=== PATIENT | female | born 1945 | race Caucasian/White ===

== ENCOUNTER 2017-04-13 19:27 | Inpatient (IN) | payer OTHER, MEDICARE ==
[~2017-04-13] VITALS: Ht 165.1 cm; Wt 90.0 kg
[~2017-04-13 19:27] MED LIST: AMLO5TAB22 PO; LOSA100T PO; TENO300 PO
[2017-04-13 19:30] VITALS: BP 183/84; PULSE 76; RESP 14; TEMP 98.1; O2SAT 96
[2017-04-13] MEDS ORDERED: LOSA100T PO (19:46)
[2017-04-13] MEDS ORDERED: AMLO5TAB2 PO (19:46)
[2017-04-13 19:47] VITALS: TEMP 99
--- NOTE | 2017-04-13 19:51 | PD ---
HPI Chief Complaint: Skin Problem Time Seen by Provider: 19:51 Travel History International Travel<30 days: No Contact w/Intl Traveler<30days: No Traveled to known affect area: No History of Present Illness HPI 71-year-old female with history of hypertension presents to the emergency department for evaluation of cat bite to right hand thumb that occurred 5 days ago. This was her own personal cat that is up-to-date on its immunizations with no signs or symptoms of rabies. The patient states that she's had worsening redness, swelling and pain in the right thumb since this occurred. States that she is unable to move her thumb due to the swelling and pain. She is complaining of subjective fever. Denies any discharge or drainage from the site. She has been taking ibuprofen and doing Epsom salts with no improvement of symptoms. States that she does have a history of diabetes however this is diet controlled. Unsure of her last tetanus vaccination. No other complaints. PFSH Past Medical History Asthma: No Anxiety: No Depression: No Cancer: No Cardiovascular Problems: No High Cholesterol: Yes COPD: No Diabetes: Yes (DIET CONTROLLED) Diminished Hearing: No Endocrine: Yes GERD: No Genitourinary: Yes (INCONTINENT) Hiatal Hernia: No Hypertension: Yes Immune Disorder: No Kidney Stones: No Musculoskeletal: Yes (BONE SPUR ON SPINE) Neurologic: Yes (NEUROPATHY) Psychiatric: No Reproductive: No Respiratory: Yes (SLEEP APNEA) Integumentary: Yes (ROSACEA) Renal Failure: No Sleep Apnea: Yes (CPAP AT NIGHT) Thyroid Disease: Yes Ulcer: Yes Menopausal: Yes Past Surgical History AICD: No Appendectomy: Yes Eye Surgery: Yes (RIGHT CATARACT 12/13/13) Genitourinary Surgery: Yes (URETHRAL REPAIR,BLADDER REPAIR) Gynecologic Surgery: Yes (total hysterectomy) Hysterectomy: Yes Joint Replacement: No Pacemaker: No Other Surgery: Yes (BLADDER REPAIR) Social History Alcohol Use: No Tobacco Use: No Substance Use: No Allergies-Medications (Allergen,Severity, Reaction): Coded Allergies: Bactrim (Verified Allergy, Severe, UNKNOWN REACTION, 04/13/17) Codeine (Verified Allergy, Severe, UNKNOWN REACTION, 04/13/17) Cymbalta (Verified Allergy, Severe, UNKNOWN REACTION, 04/13/17) Flexeril (Verified Allergy, Severe, LEG CRAMPS, 04/13/17) Januvia (Verified Allergy, Severe, UNKNOWN REACTION, 04/13/17) Lisinopril (Verified Allergy, Severe, COUGH, 04/13/17) Lovastatin (Verified Allergy, Severe, LEG CRAMPS, 04/13/17) Micardis (Verified Allergy, Severe, SWELLING, 04/13/17) Penicillin (Verified Allergy, Severe, UNKNOWN REACTION, 04/13/17) Potassium (Verified Allergy, Severe, LEG CRAMPS, 04/13/17) Sulfa (Verified Allergy, Severe, SWELLING, 04/13/17) *MDRO Multi-Drug Resistant Organism (Verified Adverse Reaction, Unknown, ) 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 Reported Meds & Prescriptions Reported Meds & Active Scripts Active Reported Losartan (Losartan Potassium) 100 Mg Tab 100 Mg PO DAILY Amlodipine (Amlodipine Besylate) 5 Mg Tab 5 Mg PO DAILY Review of Systems Except as stated in HPI: all other systems reviewed are Neg Physical Exam Narrative GENERAL: Well-nourished and well-developed pleasant female patient in no acute distress who is nontoxic appearing. SKIN: Warm and dry. HEAD: Normocephalic and atraumatic. EYES: No injection, drainage, or hyphema noted. PERRLA. EOMI. ENT: No nasal drainage noted. Oropharynx is clear. NECK: Supple and the trachea is midline. CARDIOVASCULAR: Regular rate and rhythm. RESPIRATORY: Breath sounds are equal bilaterally with no accessory muscle use, wheezing, rhonchi, or crackles. GASTROINTESTINAL: Abdomen is soft, non-tender, and nondistended. EXTREMITY: Puncture wound to the volar right thumb just above the MCP. The right thumb is erythematous, warm and swollen, sausage like digit. No lymphangitis. There is tenderness to palpation along the flexor tendon. Patient is unable to flex at the first DIP or MCP. Full range of motion in all other joints. Distal extremity neurovascularly intact with intact two point discrimination. Capillary refill is within normal limits. NEUROLOGICAL: Awake, alert, and oriented. Normal speech and gait. Cranial nerves are grossly intact. Data Data Last Documented VS Vital Signs Date Time Temp Pulse Resp B/P Pulse Ox O2 Delivery O2 Flow Rate FiO2 04/13/17 19:58 98 Room Air 04/13/17 19:47 99.0 04/13/17 19:30 76 14 183/84 Orders Basic Metabolic Panel (Bmp) (04/13/17 19:48) Complete Blood Count With Diff (04/13/17 19:48) Iv Access Insert/Monitor (04/13/17 19:48) Ecg Monitoring (04/13/17 19:48) Oximetry (04/13/17 19:48) Sodium Chloride 0.9% Flush (Ns Flush) (04/13/17 20:00) Ciprofloxacin 400 Mg Premix (Cipro 400 M (04/13/17 20:00) Metronidazole 500 Mg Inj (Flagyl 500 Mg (04/13/17 20:00) Hand, Complete (Vqq2imo) (04/13/17 19:48) C-Reactive Protein (Crp) (04/13/17 19:58) Westergren Sedimentation Rate (04/13/17 19:58) Tetanus/Diphtheria Tox Adult (Tetanus/Di (04/13/17 20:15) NPO (04/14/17 00:00) ^ Other Nursing Orders (04/13/17 20:41) Labs Laboratory Tests Test 04/13/17 19:57 White Blood Count 10.3 TH/MM3 Red Blood Count 4.14 MIL/MM3 Hemoglobin 13.4 GM/DL Hematocrit 37.6 % Mean Corpuscular Volume 90.8 FL Mean Corpuscular Hemoglobin 32.4 PG Mean Corpuscular Hemoglobin 35.6 % Concent Red Cell Distribution Width 12.0 % Platelet Count 188 TH/MM3 Mean Platelet Volume 8.1 FL Neutrophils (%) (Auto) 63.9 % Lymphocytes (%) (Auto) 25.9 % Monocytes (%) (Auto) 6.8 % Eosinophils (%) (Auto) 2.4 % Basophils (%) (Auto) 1.0 % Neutrophils # (Auto) 6.6 TH/MM3 Lymphocytes # (Auto) 2.7 TH/MM3 Monocytes # (Auto) 0.7 TH/MM3 Eosinophils # (Auto) 0.2 TH/MM3 Basophils # (Auto) 0.1 TH/MM3 CBC Comment DIFF FINAL Differential Comment Sodium Level 137 MEQ/L Potassium Level 3.5 MEQ/L Chloride Level 102 MEQ/L Carbon Dioxide Level 27.6 MEQ/L Anion Gap 7 MEQ/L Blood Urea Nitrogen 16 MG/DL Creatinine 0.76 MG/DL Estimat Glomerular Filtration 75 ML/MIN Rate Random Glucose 116 MG/DL Calcium Level 9.2 MG/DL MDM Medical Decision Making Medical Screen Exam Complete: Yes Emergency Medical Condition: Yes Differential Diagnosis Flexor tenosynovitis versus abscess versus cellulitis versus animal bite Narrative Course 71-year-old female presents to the emergency department for evaluation of Bite to right thumb that occurred 5 days ago. Patient is afebrile, vital signs are stable. She has a sausagelike digit that is concerning for flexor tenosynovitis. IV access is obtained, labs were drawn and sent. Patient is placed on cardiac telemetry pulse oximetry monitoring. Patient is administered Cipro 400 mg IV and Flagyl 500 mg IV. X-ray of the right hand has been ordered and is pending. CBC is unremarkable. BMP is unremarkable. Patient will be admitted to medicine service for IV antibiotics and hand surgery consultation with I&D. Physician Communication Physician Communication I spoke with Dr. Mclain who requests patient be admitted to medicine service and kept NPO after midnight for I&D tomorrow. I spoke with Dr. Turner [facility] who agrees to admit the patient to her service. Diagnosis Primary Impression: Flexor tenosynovitis of thumb Additional Impression: Cat bite Qualified Code: W55.01XA - Cat bite, initial encounter Admitting Information Admitting Physician Requests: Admit Daly Hinojosa April 13, 2017 19:51
[2017-04-13 19:58] VITALS: O2SAT 98
[2017-04-13] MEDS ORDERED: metroNIDAZOLE 500 MG INJ 100 ML IV ONE (20:00)
[2017-04-13] MEDS ORDERED: CIPROFLOXACIN 400 MG PREMIX 200 ML IV ONE (20:00)
[2017-04-13] MEDS ORDERED: SODIUM CHLORIDE 0.9% FLUSH 10 ML FLUSH IV FLUSH PRN ×2 (20:00→21:00)
[2017-04-13 20:11] LABS: AUTOMATED NEUTROPHIL # 6.6 TH/MM3 (1.8-7.7); BASOPHIL # 0.1 TH/MM3 (0-0.2); EOSINOPHIL # 0.2 TH/MM3 (0-0.4); EOSINOPHIL % 2.4 % (0.0-4.0); HEMATOCRIT 37.6 % (35.0-46.0); HEMO FLAGS DIFF FINAL; LYMPH % 25.9 % (9.0-44.0); LYMPHOCYTE # 2.7 TH/MM3 (1.0-4.8); MEAN CELL VOLUME 90.8 FL (80.0-100.0); MEAN CORPUSCULAR HEMOGLOBIN 32.4 PG (27.0-34.0); MEAN CORPUSCULAR HGB CONC 35.6 % (32.0-36.0); MONO % 6.8 % (0.0-8.0); NEUT % 63.9 % (16.0-70.0); PLATELET COUNT 188 TH/MM3 (150-450); RED BLOOD COUNT 4.14 MIL/MM3 (4.00-5.30); WHITE BLOOD COUNT 10.3 TH/MM3 (4.0-11.0)
[2017-04-13] MEDS ORDERED: TETANUS/DIPHTHERIA TOXOID ADULT 0.5 ML VIAL IM ONE (20:15)
[2017-04-13 20:29] LABS: BICARBONATE 27.6 MEQ/L (21.0-32.0); POTASSIUM 3.5 MEQ/L (3.5-5.1)
[2017-04-13] MEDS ORDERED: NALOXONE HCL 0.4 MG/ML AMP IV PRN (21:00)
--- NOTE | 2017-04-13 21:00 | RADRPT ---
EXAM DATE/TIME: 04/13/2017 20:41 [place] COMPARISON: No previous studies available for comparison. INDICATIONS : Right medial hand swelling and pain after a cat bite 2 days ago. MEDICAL HISTORY : Hypertension. Hypercholesterolemia. Thyroid disease. Neuropathy. Ulcer. Bone spur on spine. Diabetes. Fatty liver. SURGICAL HISTORY : Appendectomy. Hysterectomy. Right cataract surgery. Bladder and urethral repair. ENCOUNTER: Initial ACUITY: 2 days PAIN SCORE: 6/10 LOCATION: Right lateral hand. FINDINGS: There is severe osteoarthritis of the second and third distal interphalangeal joints and thumb basal joint. No fracture or dislocation. No radiopaque foreign bodies. CONCLUSION: Osteoarthritis. Landon Caruso MD on April 13, 2017 at 20:57 Board Certified Radiologist. This report was verified electronically.
[2017-04-13 21:46] VITALS: BP 159/71; PULSE 68; RESP 18; TEMP 99; O2SAT 100
[2017-04-13] MEDS: SODIUM CHLORIDE 0.9% FLUSH 10 ML FLUSH IV FLUSH SCH (21:47)
[2017-04-13 22:00] VITALS: BP 167/81; PULSE 69; RESP 18; TEMP 97.5; O2SAT 95
[2017-04-13 23:00] VITALS: PULSE 62
[2017-04-14] VITALS: BP 165/73; PULSE 66; RESP 17; TEMP 97.7; O2SAT 96
[2017-04-14] MEDS ORDERED: ACETAMINOPHEN 500 MG CPLT PO PRN (00:15)
[2017-04-14] MEDS ORDERED: ACETAMINOPHEN/HYDROcodone 325 MG/5 MG TAB PO PRN (00:15)
[2017-04-14] MEDS: D5-1/2 NS + KCL 20 MEQ INJ 1,000 ML IV SCH ×2 (00:35→17:48)
[2017-04-14] MEDS: amLODIPine BESYLATE 5 MG TAB PO SCH ×2 (00:35→21:53)
--- NOTE | 2017-04-14 03:38 | HHI.HP ---
HPI Service [facility] Primary Care Physician Rachel Etienne MD Admission Diagnosis Right Thumb Tenosynovitis, Cat Bite Diagnoses: Chief Complaint: cat bite right thumb Travel History International Travel<30 Days: No Contact w/Intl Traveler <30 Da: No Traveled to Known Affected Are: No History of Present Illness Written by Tamara Langley, acting as scribe for Dr. Turner on 04/14/17 at 03: 54. Ms. Perez is a pleasant 70-year-old female with a history of seizure hx no longer on medication, arthritis in neck, hypertension, DM diet controlled, sleep apnea uses CPAP and hepatitis B s/p treatment. Patient presents to the ER for evaluation of a cat bite to right hand thumb that occurred 5 days ago. Patient reports she was giving her cat a pill last Tuesday and the cat bite her. This was her own personal cat that is up-to-date on its immunizations with no signs or symptoms of rabies. The patient states that she's had worsening redness, swelling and pain in the right thumb since this occurred. States that she is unable to move her thumb due to the swelling and pain. describes to pain as a dull aching sensation. She endures subjective fever. Denies any discharge or drainage from the site. She has been taking ibuprofen and doing Epsom salts with no improvement of symptoms. States that she does have a history of diabetes however this is diet controlled. Reports her last A1C last month was 6.0. Patient denies chest pain, SOB, N/V/D or chills. Review of Systems Genitourinary: COMPLAINS OF: Urinary incontinence Except as stated in HPI: all other systems reviewed are Neg Past Family Social History Past Medical History Seizure hx no longer on medication, arthritis of neck, Hypertension, DM diet controlled, sleep apnea does use CPAP, hepatitis B s/p treatment Past Surgical History Total hysterectomy, bladder/ureter repair, appendectomy Reported Medications Losartan (Losartan Potassium) 100 Mg Tab 100 Mg PO DAILY Amlodipine (Amlodipine Besylate) 5 Mg Tab 5 Mg PO DAILY Allergies: Coded Allergies: Bactrim (Verified Allergy, Severe, UNKNOWN REACTION, 04/13/17) Codeine (Verified Allergy, Severe, UNKNOWN REACTION, 04/13/17) Cymbalta (Verified Allergy, Severe, UNKNOWN REACTION, 04/13/17) Flexeril (Verified Allergy, Severe, LEG CRAMPS, 04/13/17) Januvia (Verified Allergy, Severe, UNKNOWN REACTION, 04/13/17) Lisinopril (Verified Allergy, Severe, COUGH, 04/13/17) Lovastatin (Verified Allergy, Severe, LEG CRAMPS, 04/13/17) Micardis (Verified Allergy, Severe, SWELLING, 04/13/17) Penicillin (Verified Allergy, Severe, UNKNOWN REACTION, 04/13/17) Potassium (Verified Allergy, Severe, LEG CRAMPS, 04/13/17) Sulfa (Verified Allergy, Severe, SWELLING, 04/13/17) *MDRO Multi-Drug Resistant Organism (Verified Adverse Reaction, Unknown, ) 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 Active Ordered Medications Current Medications Medications (Trade) Dose Ordered Sig/Carlotta Route Start Time Stop Time Status Last Admin (NS Flush) 2 ml UNSCH PRN IV FLUSH 04/13/17 20:00 (NS Flush) 2 ml UNSCH PRN IV FLUSH 04/13/17 21:00 (NS Flush) 2 ml BID IV FLUSH 04/13/17 21:00 04/13/17 21:47 Naloxone HCl 0.4 mg 0.4 mg UNSCH PRN IV 04/13/17 21:00 Ciprofloxacin/ Dextrose 200 ml @ 200 mls/hr Q12H IV 04/14/17 08:00 Metronidazole 100 ml @ 100 mls/hr Q6H IV 04/14/17 03:00 (D5-1/2 NS + KCl 20 Meq Inj) 1,000 ml @ 84 mls/hr [id number] IV 04/14/17 02:00 04/14/17 00:35 (Cozaar) 100 mg DAILY PO 04/14/17 09:00 (Tylenol) 500 mg Q4H PRN PO 04/14/17 00:15 04/14/17 00:35 ([place] 5-325 Mg) 1 tab Q4H PRN PO 04/14/17 00:15 (Norvasc) 5 mg HS PO 04/14/17 00:05 04/14/17 00:35 Family History Mother secondary to breast cancer, father secondary to pancreatic cancer. Both children diagnosed with colon cancer ages 50 and 45 Social History Patient quit smoking about 30+ years ago. Denies drinking alcohol or using illicit drugs. Physical Exam Vital Signs Vital Signs Date Time Temp Pulse Resp B/P Pulse Ox O2 Delivery O2 Flow Rate FiO2 04/14/17 00:00 97.7 66 17 165/73 96 04/13/17 23:00 62 04/13/17 22:00 97.5 69 18 167/81 95 04/13/17 21:46 99.0 68 18 159/71 100 Room Air 04/13/17 19:58 98 Room Air 04/13/17 19:47 99.0 04/13/17 19:30 98.1 76 14 183/84 96 Room Air Physical Exam GENERAL: This is a well-nourished, well-developed patient, in no apparent distress. SKIN: R thumb with puncture wound and surrounding erythema and edema HEAD: Atraumatic. Normocephalic. No temporal or scalp tenderness. EYES: Extraocular motions intact. No scleral icterus. No injection or drainage. CARDIOVASCULAR: Regular rate and rhythm without murmurs, gallops, or rubs. RESPIRATORY: Clear to auscultation. Breath sounds equal bilaterally. No wheezes , rales, or rhonchi. GASTROINTESTINAL: Abdomen soft, non-tender, nondistended. No guarding. MUSCULOSKELETAL: left lower extremity edema chronic. No calf tenderness. Negative Homans sign bilaterally. NEUROLOGICAL: Awake and alert. No focal deficits. Motor and sensory grossly within normal limits. Five out of 5 muscle strength in all muscle groups, with the exception of right hand due to edema. Normal speech. Laboratory Laboratory Tests Test 04/13/17 19:57 White Blood Count 10.3 Red Blood Count 4.14 Hemoglobin 13.4 Hematocrit 37.6 Mean Corpuscular Volume 90.8 Mean Corpuscular Hemoglobin 32.4 Mean Corpuscular Hemoglobin 35.6 Concent Red Cell Distribution Width 12.0 Platelet Count 188 Mean Platelet Volume 8.1 Neutrophils (%) (Auto) 63.9 Lymphocytes (%) (Auto) 25.9 Monocytes (%) (Auto) 6.8 Eosinophils (%) (Auto) 2.4 Basophils (%) (Auto) 1.0 Neutrophils # (Auto) 6.6 Lymphocytes # (Auto) 2.7 Monocytes # (Auto) 0.7 Eosinophils # (Auto) 0.2 Basophils # (Auto) 0.1 CBC Comment DIFF FINAL Differential Comment Erythrocyte Sedimentation Rate 59 Sodium Level 137 Potassium Level 3.5 Chloride Level 102 Carbon Dioxide Level 27.6 Anion Gap 7 Blood Urea Nitrogen 16 Creatinine 0.76 Estimat Glomerular Filtration 75 Rate Random Glucose 116 Calcium Level 9.2 C-Reactive Protein 1.70 Result Diagram: 04/13/17195604/13/171956 Imaging Last Impressions Hand X-Ray 04/13/171947 Signed Impressions: Service Date/Time: Thursday, April 13, 2017 20:41 - CONCLUSION: Osteoarthritis. Landon Caruso MD Assessment and Plan Problem List: (1) Cat bite ICD Code: W55.01XA Status: Acute (2) Flexor tenosynovitis of thumb ICD Code: M65.9 Status: Acute (3) Hypertension ICD Code: I10 Status: Acute Assessment and Plan Ms. Perez is a pleasant 70-year-old female with a history of hypertension, DM diet controlled, sleep apnea uses CPAP. Patient presents to the ER for evaluation of a cat bite to right hand thumb that occurred 5 days ago. Patient reports she was giving her cat a pill last Tuesday and the cat bite her. This was her own personal cat that is up-to-date on its immunizations with no signs or symptoms of rabies. The patient states that she's had worsening redness, swelling and pain in the right thumb since this occurred. States that she is unable to move her thumb due to the swelling and pain. Cellulitis right hand secondary to cat bite- acute tenosynovitis right thumb- acute Right hand X ray reviewed and reveals: Osteoarthritis. IV ciprofloxacin and Flagyl Consult to hand surgery- planned surgery later today NPO except meds HTN- chronic Continue home medications losartan QAM and Amlodipine QHS monitor BP trend Sleep apnea- chronic OK to use home CPAP- family member is going to bring her home machine Left lower extremity edema- chronic No calf tenderness. Negative Homans sign bilaterally. negative outpatient US 3 weeks ago Discussed with ER provider, nursing and patient This note was transcribed by [email or web address] [Katie Langley]. I, Dr. Ana María Turner personally performed the history, physical exam, and medical decision making; and confirmed the accuracy of the information in the transcribed note. Authenticated by Dr. Ana María Turner on 04/14/17 at 03:54. 04/14/17 at 03:54. Discussed Condition With patient, ER Physician Certification 2 Midnight Certification Type: Admission for Inpatient Services Order for Inpatient Services The services are ordered in accordance with Medicare regulations or non- Medicare payer requirements, as applicable. In the case of services not specified as inpatient-only, they are appropriately provided as inpatient services in accordance with the 2-midnight benchmark. Estimated LOS (days): 3 days is the estimated time the patient will need to remain in the hospital, assuming treatment plan goals are met and no additional complications. Post-Hospital Plan: Home Problem Qualifiers (1) Cat bite: Qualified Code: W55.01XA - Cat bite, initial encounter Tamara Langley April 14, 2017 03:38 Ana María Turner MD April 14, 2017 07:55
[2017-04-14 04:00] VITALS: BP 161/75; PULSE 67; RESP 18; TEMP 96.6; O2SAT 92
[2017-04-14] MEDS: metroNIDAZOLE 500 MG INJ 100 ML IV SCH ×4 (04:12→21:53)
--- NOTE | 2017-04-14 07:29 | MB ---
cc: DIDIER ASCENCIO III, M.D. DATE OF CONSULTATION 04/13/2017 REASON FOR CONSULTATION The patient is a very friendly 71-year-old [id number] female who has had a puncture wounds to her right thumb from her own cat that happened five days ago while she was giving it a pill. It is her cat and she is up-to-date on immunizations and is healthy. She has had worsening redness, swelling and pain that she treated symptomatically at home and she said it has improved considerably, but there is still significant redness and swelling remaining. PAST MEDICAL HISTORY 1. Hepatitis B Elevated Cholesterol 2. Type 2 diabetes 3. Urinary incontinence per report 4. Hypertension 5. Neuropathy 6. Sleep apnea 7. Rosacea 8. Thyroid disease PAST SURGICAL HISTORY 1. Appendectomy 2. Right cataract surgery in 2013 degrees. 3. Urethral repair and bladder repair 4. Total hysterectomy SOCIAL HISTORY She does not smokes. ALLERGIES BACTRIM, CODEINE, CYMBALTA, FLEXERIL, JANUVIA, LISINOPRIL, LOVASTATIN, MICARDIS, PENICILLIN, POTASSIUM, SULFA. MEDICATIONS 1. Losartan 100 mg daily 2. Amlodipine 5 mg daily REVIEW OF SYSTEMS Patient is not remaining of any headaches, blurry or double vision. She is not complaining of any coughing, wheezing or shortness breath. She is not complaining of any chest pain or palpitations. She is not complaining of any nausea, vomiting, or abdominal pain. She is not complaining of any burning, frequency or urgency with urination. She is not complaining of any spine, neck or back pain. She is not complaining of any anxiety, depression or suicidal ideations. She is not complaining of any night sweats, fevers or chills. She is not complaining of any lesions, rashes or eruptions on her skin except for her right thumb. X-rays of the right thumb reveal no fractures, foreign bodies or dislocations and reveals only the osteoarthritic changes in her hand. LABORATORY STUDIES BUN and creatinine 16 and 0.76. White blood cell count 10.3, hemoglobin 13.4, hematocrit 37.6, platelet count 188,000. PHYSICAL EXAMINATION She is a very pleasant well-developed, well-nourished female in no apparent distress. VITAL SIGNS: Temperature is 99.0, heart rate 68, respiratory rate 18, blood pressure 159/71, on room air 100% pulse ox. EXTREMITIES: Examination of the upper extremity reveals an obviously swollen and erythematous right thumb with an area of induration over the A1 josue proximal to the MCP flexion crease. There are healed puncture wounds over the proximal phalanx volarly. Flexion/extension is intact. Negative Tinel's sign over the median nerve at the wrist. All musculotendinous units appear to be intact and functioning normally with the exception of the thumb which is only a little bit stiff from the edema. Capillary refill is less than two seconds in the thumb and all fingertips. There is no proximal streaking. There is no axillary adenopathy. There is no epitrochlear adenopathy. She has full active range of motion of her wrist, elbow and her shoulders also. Her gait is normal. She is very pleasant. IMPRESSION Cat bite to the right thumb with infection and flexor tenosynovitis and abscess. PLAN The plan is to go to the operating room tomorrow. The patient ate dinner before she came to the hospital this evening so I put her on for the operating room the late morning to follow my cases. She is in agreement with this and requests that we proceed. MD DAYSI Stern III/JULIET /10:57 PM /7:16 AM LUCY
[2017-04-14 07:33] LABS: AUTOMATED NEUTROPHIL # 4.3 TH/MM3 (1.8-7.7); BASOPHIL % 0.6 % (0.0-2.0); EOSINOPHIL # 0.2 TH/MM3 (0-0.4); EOSINOPHIL % 3.2 % (0.0-4.0); HEMATOCRIT 36.1 % (35.0-46.0); HEMO FLAGS DIFF FINAL; LYMPH % 27.1 % (9.0-44.0); LYMPHOCYTE # 1.9 TH/MM3 (1.0-4.8); MEAN CELL VOLUME 91.2 FL (80.0-100.0); MEAN CORPUSCULAR HEMOGLOBIN 31.9 PG (27.0-34.0); NEUT % 61.1 % (16.0-70.0); PLATELET COUNT 150 TH/MM3 (150-450); RED BLOOD COUNT 3.96 MIL/MM3 (4.00-5.30); WHITE BLOOD COUNT 7.1 TH/MM3 (4.0-11.0)
[2017-04-14 08:00] VITALS: BP 159/74; PULSE 68; RESP 16; TEMP 96.8; O2SAT 94
[2017-04-14 08:03] LABS: BICARBONATE 26.7 MEQ/L (21.0-32.0); POTASSIUM 3.3 MEQ/L (3.5-5.1)
[2017-04-14] MEDS: CIPROFLOXACIN 400 MG PREMIX 200 ML IV SCH ×2 (08:23→23:01)
[2017-04-14] MEDS: LOSARTAN 50 MG TAB PO SCH (08:23)
[2017-04-14] MEDS: SODIUM CHLORIDE 0.9% FLUSH 10 ML FLUSH IV FLUSH SCH ×2 (08:23→21:53)
[2017-04-14] MEDS ORDERED: amLODIPine BESYLATE 5 MG TAB PO SCH (09:00)
[2017-04-14] MEDS ORDERED: BUPIVACAINE HCL PF 0.5% 30 ML VIAL ONE (10:57)
[2017-04-14] MEDS ORDERED: LIDOCAINE HCL 1% 50 ML VIAL ONE (10:58)
[2017-04-14] MEDS ORDERED: LIDOCAINE HCL 2% 50 ML VIAL ONE (11:27)
[2017-04-14] MEDS ORDERED: METOCLOPRAMIDE HCL 10 MG/2 ML VIAL ONE (11:41)
[2017-04-14] MEDS ORDERED: fentaNYL CITRATE 250 MCG/5 ML AMP ONE (11:41)
[2017-04-14] MEDS ORDERED: ONDANSETRON HCL 4 MG/2 ML VIAL IV PUSH ONE (12:00)
[2017-04-14] MEDS ORDERED: PROPOFOL 200 MG/20 ML AMP IV ONE (12:00)
[2017-04-14] MEDS ORDERED: NEOMYCIN/POLYMYXIN 1 ML G.U. IRRIGANT TOPICAL ONE (12:15)
[2017-04-14] MEDS ORDERED: *morphine SULFATE 8 MG/ML PERIprocedure ONLY ONE (13:20)
[2017-04-14] MEDS ORDERED: DO NOT ADM ANY ANTICOAGULANT DRUGS PRN (13:30)
--- NOTE | 2017-04-14 14:24 | HHI.PR ---
Subjective Remarks Follow up index finger cellulitis post cat bite 04/14/17-patient seen and examined post I&D; pain currently controlled Objective Vitals Vital Signs Date Time Temp Pulse Resp B/P Pulse Ox O2 Delivery O2 Flow Rate FiO2 04/14/17 13:15 97.9 51 14 140/65 99 Nasal Cannula 2 04/14/17 13:00 53 12 158/73 99 04/14/17 12:45 60 19 158/72 99 Nasal Cannula 2 04/14/17 12:41 97.5 55 20 147/67 99 Nasal Cannula 2 04/14/17 08:00 96.8 68 16 159/74 94 04/14/17 04:00 96.6 67 18 161/75 92 04/14/17 00:00 97.7 66 17 165/73 96 04/13/17 23:00 62 04/13/17 22:00 97.5 69 18 167/81 95 04/13/17 21:46 99.0 68 18 159/71 100 Room Air 04/13/17 19:58 98 Room Air 04/13/17 19:47 99.0 04/13/17 19:30 98.1 76 14 183/84 96 Room Air I/O 04/13/17 04/13/17 04/13/17 04/14/17 04/14/17 04/14/17 07:00 15:00 23:00 07:00 15:00 23:00 Intake Total 1708 ml Balance 1708 ml Intake IV Total 1408 ml Other 300 ml # Voids 1 1 Result Diagram: 04/14/17 0600 04/14/17 06 Imaging Last Impressions Hand X-Ray 04/13/171947 Signed Impressions: Service Date/Time: Thursday, April 13, 2017 20:41 - CONCLUSION: Osteoarthritis. Landon Caruso MD Objective Remarks GENERAL: NAD SKIN: Warm and dry. HEAD: Normocephalic. EYES: No scleral icterus. No injection or drainage. NECK: Supple, trachea midline. No JVD or lymphadenopathy. CARDIOVASCULAR: Regular rate and rhythm without murmurs, gallops, or rubs. RESPIRATORY: Breath sounds equal bilaterally. No accessory muscle use. GASTROINTESTINAL: Abdomen soft, non-tender, nondistended. MUSCULOSKELETAL: No cyanosis, or edema. right hand in dressing BACK: Nontender without obvious deformity. No CVA tenderness. A/P Problem List: (1) Cat bite ICD Code: W55.01XA Status: Acute (2) Flexor tenosynovitis of thumb ICD Code: M65.9 Status: Acute (3) Hypertension ICD Code: I10 Status: Acute Assessment and Plan 71 yrs old female with Cellulitis right hand secondary to cat bite- acute tenosynovitis right thumb- acute Right hand X ray reviewed and reveals: Osteoarthritis. IV ciprofloxacin and Flagyl Appreciate input from Hand surgery as patient is s/p Right thumb and hand incision and drainage flexor sheath and palmar bursa 04/14/17 HTN- chronic Continue home medications losartan QAM and Amlodipine QHS Sleep apnea- chronic OK to use home CPAP Left lower extremity edema- chronic No calf tenderness. Negative Homans sign bilaterally. negative outpatient US 3 weeks ago Problem Qualifiers (1) Cat bite: Qualified Code: W55.01XA - Cat bite, initial encounter Rafi Rodriguez MD April 14, 2017 14:23
[2017-04-14 16:00] VITALS: BP 131/80; PULSE 61; RESP 18; TEMP 97; O2SAT 93
--- NOTE | 2017-04-14 16:49 | EKG ---
Date Performed: 04/14/2017 Time Performed: 07:12:26 PTAGE: 71 years EKG: SINUS BRADYCARDIA MARKED LEFT AXIS DEVIATION MINIMAL VOLTAGE CRITERIA FOR LVH, CONSIDER NOR MAL VARIANT POSSIBLE ANTERIOR MYOCARDIAL INFARCTION , OF INDETERMINATE AGE ABNORMAL ECG PREVIOUS TRACING : 01/28/2014 15.27 Compared to prior tracing no significant change DOCTOR: Sincere Boone Interpretating Date/Time 04/14/2017 16:49:24
[2017-04-14 20:00] VITALS: BP 153/81; PULSE 72; RESP 18; TEMP 98.5; O2SAT 95
[2017-04-14 20:52] VITALS: PULSE 58; PULSE 78
--- NOTE | 2017-04-14 21:51 | MP ---
cc: DAVID MCLAIN III, M.D. DATE OF SURGERY 04/14/2017 PREOPERATIVE DIAGNOSIS Right thumb infection and abscess. POSTOPERATIVE DIAGNOSIS PROCEDURE Right thumb and hand incision and drainage flexor sheath and palmar bursa. SURGEON David Mclain III, MD PROCEDURE The patient was brought to the operating room, placed supine on the operating table as the correct site and side of surgery were verified by members of each team in the room multiple times including the patient and myself and after adequate preop markings the preoperative written consent were verified by everyone. After adequate preoperative time-out was performed to everyone's satisfaction. After adequate general anesthesia had been achieved the right upper extremity was prepped and draped in the traditional sterile surgical fashion. The healing puncture wound was debrided. Purulent drainage was encountered. This was sampled and passed off the field as specimen. The limb was elevated and pressure was placed on the brachial artery for 1 minute. A highly placed well-padded axillary tourniquet was inflated to 200 mmHg for a total of 7 minutes. A Torin style incision was made over the area of the maximum induration and erythema to include the puncture wounds. Blunt dissection was performed. The abscess cavity was opened and probed in its greatest extent. A liters worth of antiseptic antibiotic saline solution was used to thoroughly flush this wound out. There was no grossly devitalized or infected tissue. The wound was then gently packed with one-quarter inch Iodoform packing and a bulky protective soft dressing was applied. The axillary tourniquet was released and the hand and all the fingers became immediately soft, pink, warm and had brisk capillary refill of less than 2 seconds including the thumb. The patient was awakened from anesthesia and transported to the Post Anesthesia Care Unit, awake and in stable condition at the end of the case. Sponge, needle, instrument counts were correct at the end of the case as reported by nurses in the room. MD DAYSI Stern III/PEDRO /12:35 PM /9:40 PM
[2017-04-15] VITALS: BP 154/69; PULSE 67; RESP 16; TEMP 98.5; O2SAT 96
[2017-04-15] MEDS: metroNIDAZOLE 500 MG INJ 100 ML IV SCH ×2 (03:00→10:15)
[2017-04-15] MEDS: D5-1/2 NS + KCL 20 MEQ INJ 1,000 ML IV SCH (03:02)
[2017-04-15 04:00] VITALS: BP 123/69; PULSE 59; RESP 15; TEMP 98.1; O2SAT 95
[2017-04-15 07:25] VITALS: PULSE 54
[2017-04-15] MEDS: CIPROFLOXACIN 400 MG PREMIX 200 ML IV SCH (07:58)
[2017-04-15 08:00] VITALS: BP 112/52; PULSE 57; RESP 16; TEMP 98.1; O2SAT 95
[2017-04-15] MEDS: SODIUM CHLORIDE 0.9% FLUSH 10 ML FLUSH IV FLUSH SCH (08:02)
[2017-04-15] MEDS: LOSARTAN 50 MG TAB PO SCH (08:02)
--- NOTE | 2017-04-15 11:57 | HHI.PR ---
Subjective Remarks Follow up index finger cellulitis post cat bite 04/14/17-patient seen and examined post I&D; pain currently controlled 04/15/17-patient seen and examined; denies any pain and she is currently afebrile Objective Vitals Vital Signs Date Time Temp Pulse Resp B/P Pulse Ox O2 Delivery O2 Flow Rate FiO2 04/15/17 08:00 98.1 57 16 112/52 95 04/15/17 07:25 54 04/15/17 04:00 98.1 59 15 123/69 95 04/15/17 00:00 98.5 67 16 154/69 96 04/14/17 20:52 58 04/14/17 20:00 98.5 72 18 153/81 95 04/14/17 16:00 97.0 61 18 131/80 93 04/14/17 13:15 97.9 51 14 140/65 99 Nasal Cannula 2 04/14/17 13:00 53 12 158/73 99 04/14/17 12:45 60 19 158/72 99 Nasal Cannula 2 04/14/17 12:41 97.5 55 20 147/67 99 Nasal Cannula 2 I/O 04/14/17 04/14/17 04/14/17 04/15/17 04/15/17 04/15/17 07:00 15:00 23:00 07:00 15:00 23:00 Intake Total 1948 ml 912 ml 1392 ml Balance 1948 ml 912 ml 1392 ml Intake Oral 240 ml 240 ml 720 ml IV Total 1408 ml 672 ml 672 ml Other 300 ml # Voids 1 5 1 3 # Bowel Movements 1 Result Diagram: 04/14/1759904/14/17599 Imaging Last Impressions Hand X-Ray 04/13/171947 Signed Impressions: Service Date/Time: Thursday, April 13, 2017 20:41 - CONCLUSION: Osteoarthritis. Landon Caruso MD Objective Remarks GENERAL: NAD SKIN: Warm and dry. HEAD: Normocephalic. EYES: No scleral icterus. No injection or drainage. NECK: Supple, trachea midline. No JVD or lymphadenopathy. CARDIOVASCULAR: Regular rate and rhythm without murmurs, gallops, or rubs. RESPIRATORY: Breath sounds equal bilaterally. No accessory muscle use. GASTROINTESTINAL: Abdomen soft, non-tender, nondistended. MUSCULOSKELETAL: No cyanosis, or edema. right hand in dressing BACK: Nontender without obvious deformity. No CVA tenderness. Procedures Right thumb and hand incision and drainage flexor sheath and palmar bursa A/P Problem List: (1) Cat bite ICD Code: W55.01XA Status: Acute (2) Flexor tenosynovitis of thumb ICD Code: M65.9 Status: Acute (3) Hypertension ICD Code: I10 Status: Acute Assessment and Plan 71 yrs old female with Cellulitis right hand secondary to cat bite- acute tenosynovitis right thumb- acute Right hand X ray reviewed and reveals: Osteoarthritis. IV ciprofloxacin and Flagyl Appreciate input from Hand surgery as patient is s/p Right thumb and hand incision and drainage flexor sheath and palmar bursa 04/14/17 HTN- chronic Continue home medications losartan QAM and Amlodipine QHS Sleep apnea- chronic continue home CPAP Left lower extremity edema- chronic No calf tenderness. Negative Homans sign bilaterally. negative outpatient US 3 weeks ago Problem Qualifiers (1) Cat bite: Qualified Code: W55.01XA - Cat bite, initial encounter Rafi Rodriguez MD April 15, 2017 11:57
[2017-04-15 12:00] VITALS: BP 128/60; PULSE 50; RESP 16; TEMP 96.5; O2SAT 97
[2017-04-15] MEDS ORDERED: AUGM875T3 PO (12:02)
[2017-04-15] MEDS ORDERED: PERI8.6T PO (12:02)
[2017-04-15] MEDS ORDERED: HYDR-3516 PO (12:02)
--- NOTE | 2017-04-15 12:03 | HHI.DS ---
Discharge Summary Admission Date April 13, 2017 at 20:53 Discharge Date: April 15, 2017 Admitting Diagnosis Right Thumb Tenosynovitis, Cat Bite (1) Cat bite ICD Code: W55.01XA (2) Flexor tenosynovitis of thumb ICD Code: M65.9 (3) Hypertension ICD Code: I10 Procedures Right thumb and hand incision and drainage flexor sheath and palmar bursa Brief History - From Admission Written by Tamara Langley, acting as scribe for Dr. Turner on 04/14/17 at 03: 54. Ms. Perez is a pleasant 70-year-old female with a history of seizure hx no longer on medication, arthritis in neck, hypertension, DM diet controlled, sleep apnea uses CPAP and hepatitis B s/p treatment. Patient presents to the ER for evaluation of a cat bite to right hand thumb that occurred 5 days ago. Patient reports she was giving her cat a pill last Tuesday and the cat bite her. This was her own personal cat that is up-to-date on its immunizations with no signs or symptoms of rabies. The patient states that she's had worsening redness, swelling and pain in the right thumb since this occurred. States that she is unable to move her thumb due to the swelling and pain. describes to pain as a dull aching sensation. She endures subjective fever. Denies any discharge or drainage from the site. She has been taking ibuprofen and doing Epsom salts with no improvement of symptoms. States that she does have a history of diabetes however this is diet controlled. Reports her last A1C last month was 6.0. Patient denies chest pain, SOB, N/V/D or chills. CBC/BMP: 04/14/17 0600 04/14/17 0600 Significant Findings Laboratory Tests Test 04/13/17 04/14/17 19:57 06:00 Erythrocyte Sedimentation Rate 59 mm/hr (0-30) Estimat Glomerular Filtration 75 ML/MIN (>89) Rate Random Glucose 116 MG/DL 135 MG/DL (74-106) (74-106) C-Reactive Protein 1.70 MG/DL (0.00-0.30) Red Blood Count 3.96 MIL/MM3 (4.00-5.30) Potassium Level 3.3 MEQ/L (3.5-5.1) Imaging Last Impressions Hand X-Ray 04/13/171947 Signed Impressions: Service Date/Time: Thursday, April 13, 2017 20:41 - CONCLUSION: Osteoarthritis. Landon Caruso MD PE at Discharge GENERAL: NAD SKIN: Warm and dry. HEAD: Normocephalic. EYES: No scleral icterus. No injection or drainage. NECK: Supple, trachea midline. No JVD or lymphadenopathy. CARDIOVASCULAR: Regular rate and rhythm without murmurs, gallops, or rubs. RESPIRATORY: Breath sounds equal bilaterally. No accessory muscle use. GASTROINTESTINAL: Abdomen soft, non-tender, nondistended. MUSCULOSKELETAL: No cyanosis, or edema. right hand in dressing BACK: Nontender without obvious deformity. No CVA tenderness. Hospital Course Cellulitis right hand secondary to cat bite- acute tenosynovitis right thumb- acute Right hand X ray reviewed and reveals: Osteoarthritis. IV ciprofloxacin and Flagyl Appreciate input from Hand surgery as patient is s/p Right thumb and hand incision and drainage flexor sheath and palmar bursa 04/14/17 HTN- chronic home medications losartan QAM and Amlodipine QHS were resumed Sleep apnea- chronic continue home CPAP Left lower extremity edema- chronic No calf tenderness. Negative Homans sign bilaterally. negative outpatient US 3 weeks ago Pt Condition on Discharge: Stable Discharge Disposition: Discharge Home Discharge Time: <= 30 minutes Discharge Instructions DIET: Follow Instructions for: Heart Healthy Diet Activities you can perform: Regular-No Restrictions Follow up Referrals: Hand Surgery PCP Follow-up - 1 Week New Medications: Amoxicillin-Clavulanate (Augmentin) 875-125 Mg Tab 1 TAB PO BID Infection #20 Ref 0 TAB Sennosides-Docusate Sodium (Krupa-Colace) 8.6-50 Mg Tab 1 TAB PO BID PRN Constipation #20 Ref 0 TAB Hydrocodone-Acetaminophen (Hydrocodone-Acetaminophen) 5-325 mg Tab 1 TAB PO Q4H PRN PAIN 5-10 #20 TAB Continued Medications: Amlodipine (Amlodipine) 5 Mg Tab 5 MG PO DAILY Blood Pressure Management #30 Ref 0 TAB Losartan (Losartan) 100 Mg Tab 100 MG PO DAILY Blood Pressure Management #30 Ref 0 TAB Pontey,Rafi MD April 15, 2017 12:03
[2017-04-15] MEDS ORDERED: CIPR500T2 PO (12:44)
--- NOTE | 2017-04-15 12:49 | HHI.PR ---
Subjective Remarks no new complaints; feels fine; no pain Objective Vital Signs Date Time Temp Pulse Resp B/P Pulse Ox O2 Delivery O2 Flow Rate FiO2 04/15/17 08:00 98.1 57 16 112/52 95 04/15/17 07:25 54 04/15/17 04:00 98.1 59 15 123/69 95 04/15/17 00:00 98.5 67 16 154/69 96 04/14/17 20:52 58 04/14/17 20:00 98.5 72 18 153/81 95 04/14/17 16:00 97.0 61 18 131/80 93 04/14/17 13:15 97.9 51 14 140/65 99 Nasal Cannula 2 04/14/17 13:00 53 12 158/73 99 I/O 04/14/17 04/14/17 04/14/17 04/15/17 04/15/17 04/15/17 07:00 15:00 23:00 07:00 15:00 23:00 Intake Total 1948 ml 912 ml 1392 ml Balance 1948 ml 912 ml 1392 ml Intake Oral 240 ml 240 ml 720 ml IV Total 1408 ml 672 ml 672 ml Other 300 ml # Voids 1 5 1 3 # Bowel Movements 1 Result Diagram: 04/14/17 0600 04/14/17 0600 Objective Remarks righ tthumb erythema and induration improved dramatically; edema is also less; AROM iproved; CR<2 seconds all fingertips packing removed and no purulence Assessment and Plan Problem List: (1) Flexor tenosynovitis of thumb Status: Acute Plan: ok to ri home and f/u with dr griffiths in 7-10 days; wash dry hands w soap and water prn no ointments creams or lotions dry dsg cipro x 10 days (PCN allergy) (2) Cat bite Status: Acute Problem Qualifiers (1) Cat bite: Qualified Code: W55.01XA - Cat bite, initial encounter David Griffiths III, MD April 15, 2017 12:49
[2017-04-22] MEDS ORDERED: CIPR250T52 PO (10:28)
== END 2017-04-15 13:47 | disposition home or self-care (01) | DRG 558 ==
LOC: NEPD 19:27 → NEDA 20:53 → HOCA 22:16
PROVIDERS: ADMIT Hospitalist; ATTEND Hospitalist
PROC: 0X9J0ZZ Drainage of Right Hand, Open Approach (ICD-10-PCS; principal; 2017-04-14 11:41)
DX: M65.141 Other infective (teno)synovitis, right hand (principal); G62.9 Polyneuropathy, unspecified; L03.113 Cellulitis of right upper limb; E11.9 Type 2 diabetes mellitus without complications; L02.511 Cutaneous abscess of right hand; I10 Essential (primary) hypertension; G47.30 Sleep apnea, unspecified; L03.011 Cellulitis of right finger; S61.031A Puncture wound without foreign body of right thumb without damage to nail, initial encounter; R32 Unspecified urinary incontinence; Z86.19 Personal history of other infectious and parasitic diseases; Z87.891 Personal history of nicotine dependence; W55.01XA Bitten by cat, initial encounter
CPT/HCPCS: 73130; 80048; 85025; 85652; 86140; 87015; 87070; 87102; 87116; 87205; 87206; 90471; 90714; 93005; 96365; J0744; J2270; J2405; J2765; J3010; J3480

== ENCOUNTER 2017-07-23 21:03 | Emergency (ER) | payer OTHER, MEDICARE ==
[~2017-07-23] VITALS: Ht 165.1 cm; Wt 88.0 kg
[~2017-07-23 21:03] MED LIST changes: +AMLO5TAB2 PO; -AMLO5TAB22 PO; -TENO300 PO
[2017-07-23 21:28] VITALS: BP 145/66; PULSE 77; RESP 18; TEMP 99.1; O2SAT 96
[2017-07-23] MEDS ORDERED: HYDR25TA5 PO (21:40)
--- NOTE | 2017-07-23 22:02 | PD ---
HPI Chief Complaint: Skin Problem Time Seen by Provider: 21:56 Travel History International Travel<30 days: No Contact w/Intl Traveler<30days: No Traveled to known affect area: No History of Present Illness HPI The patient is a 71-year-old female that a week ago noted an infection in her left third toe. This infection spread up her left leg and she now has redness and swelling all the way to the knee. There is also some redness medially on her thigh. She has not recorded a fever at home, her temperature is 99.1. The patient has multiple allergies to medications any clubbing Bactrim and penicillins. She denies any history of diabetes. She denies any shortness of breath, hemoptysis, tachycardia or syncopal or near syncopal spells. PFSH Past Medical History Arthritis: Yes Asthma: No Anxiety: No Depression: No Heart Rhythm Problems: No Cancer: No Cardiovascular Problems: No High Cholesterol: Yes Chest Pain: No Congestive Heart Failure: No COPD: No Diabetes: Yes (DIET CONTROLLED) Patient Takes Glucophage: No Diminished Hearing: No Endocrine: Yes Gastrointestinal Disorders: Yes GERD: No Genitourinary: Yes (INTERMITTENT INCONTINENT) Hiatal Hernia: No Hypertension: Yes Immune Disorder: No Kidney Stones: No Musculoskeletal: Yes (BONE SPUR ON SPINE) Neurologic: Yes (NEUROPATHY) Psychiatric: No Reproductive: No Respiratory: Yes (SLEEP APNEA) Integumentary: Yes (ROSACEA) Renal Failure: No Sleep Apnea: Yes (CPAP AT NIGHT) Thyroid Disease: Yes Ulcer: Yes Tetanus Vaccination: < 5 Years Influenza Vaccination: No ?: Not Menopausal: Yes Past Surgical History AICD: No Appendectomy: Yes Eye Surgery: Yes (RIGHT CATARACT 12/13/13) Genitourinary Surgery: Yes (URETHRAL REPAIR,BLADDER REPAIR) Gynecologic Surgery: Yes (total hysterectomy) Hysterectomy: Yes Joint Replacement: No Pacemaker: No Other Surgery: Yes (BLADDER REPAIR, thumb surgery) Social History Alcohol Use: No Tobacco Use: No Substance Use: No Allergies-Medications (Allergen,Severity, Reaction): Coded Allergies: Sulfa (Sulfonamide Antibiotics) (Unverified Allergy, Severe, SWELLING, 07/23) codeine (Unverified Allergy, Severe, UNKNOWN REACTION, 07/23/17) cyclobenzaprine (Unverified Allergy, Severe, LEG CRAMPS, 07/23/17) duloxetine (Unverified Allergy, Severe, UNKNOWN REACTION, 07/23/17) lisinopril (Unverified Allergy, Severe, COUGH, 07/23/17) lovastatin (Unverified Allergy, Severe, LEG CRAMPS, 07/23/17) penicillin G (Unverified Allergy, Severe, UNKNOWN REACTION, 07/23/17) potassium (Unverified Allergy, Severe, LEG CRAMPS, 07/23/17) potassium bicarbonate (Unverified Allergy, Severe, LEG CRAMPS, 07/23/17) potassium chloride (Unverified Allergy, Severe, LEG CRAMPS, 07/23/17) potassium iodide (Unverified Allergy, Severe, LEG CRAMPS, 07/23/17) potassium phosphate (Unverified Allergy, Severe, LEG CRAMPS, 07/23/17) sitagliptin (Unverified Allergy, Severe, UNKNOWN REACTION, 07/23/17) sulfamethoxazole (Unverified Allergy, Severe, UNKNOWN REACTION, 07/23/17) telmisartan (Unverified Allergy, Severe, SWELLING, 07/23/17) trimethoprim (Unverified Allergy, Severe, UNKNOWN REACTION, 07/23/17) *MDRO Multi-Drug Resistant Organism (Verified Adverse Reaction, Unknown, ) 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 Her vital signs show temperature 99.1 with blood pressure 145/66 but are otherwise normal. SKIN: Focused skin assessment warm/dry. HEAD: Atraumatic. Normocephalic. EYES: Pupils equal and round. No scleral icterus. No injection or drainage. ENT: No nasal bleeding or discharge. Mucous membranes pink and moist. NECK: Trachea midline. No JVD. CARDIOVASCULAR: Regular rate and rhythm. No murmur appreciated. RESPIRATORY: No accessory muscle use. Clear to auscultation. Breath sounds equal bilaterally. GASTROINTESTINAL: Abdomen soft, non-tender, nondistended. Hepatic and splenic margins not palpable. MUSCULOSKELETAL: No obvious deformities. No clubbing. No cyanosis. There is 1 + lower extremity edema on the left. Homans sign is negative and there is no calf vein tenderness present. NEUROLOGICAL: Awake and alert. No obvious cranial nerve deficits. Motor grossly within normal limits. Normal speech. PSYCHIATRIC: Appropriate mood and affect; insight and judgment normal. Data Data Last Documented VS Vital Signs Date Time Temp Pulse Resp B/P (MAP) Pulse Ox O2 Delivery O2 Flow Rate FiO2 07/23/17 21:28 99.1 77 18 145/66 (92) 96 Orders Orders Complete Blood Count With Diff (07/23/17 21:56) Comprehensive Metabolic Panel (07/23/17 21:56) Urinalysis - C+S If Indicated (07/23/17 21:56) Us Leg Venous Doppler (07/23/17 21:56) Urine Culture (07/23/17 22:47) Labs Laboratory Tests Test 07/23/17 22:09 07/23/17 22:47 White Blood Count 12.2 TH/MM3 Red Blood Count 4.35 MIL/MM3 Hemoglobin 13.6 GM/DL Hematocrit 39.7 % Mean Corpuscular Volume 91.3 FL Mean Corpuscular Hemoglobin 31.3 PG Mean Corpuscular Hemoglobin Concent 34.3 % Red Cell Distribution Width 11.8 % Platelet Count 187 TH/MM3 Mean Platelet Volume 7.4 FL Neutrophils (%) (Auto) 78.2 % Lymphocytes (%) (Auto) 15.8 % Monocytes (%) (Auto) 5.2 % Eosinophils (%) (Auto) 0.4 % Basophils (%) (Auto) 0.4 % Neutrophils # (Auto) 9.7 TH/MM3 Lymphocytes # (Auto) 1.9 TH/MM3 Monocytes # (Auto) 0.6 TH/MM3 Eosinophils # (Auto) 0.0 TH/MM3 Basophils # (Auto) 0.0 TH/MM3 CBC Comment DIFF FINAL Differential Comment Blood Urea Nitrogen 46 MG/DL Creatinine 2.10 MG/DL Random Glucose 116 MG/DL Total Protein 8.2 GM/DL Albumin 3.4 GM/DL Calcium Level 9.3 MG/DL Alkaline Phosphatase 106 U/L Aspartate Amino Transf (AST/SGOT) 80 U/L Alanine Aminotransferase (ALT/SGPT) 45 U/L Total Bilirubin 0.6 MG/DL Sodium Level 130 MEQ/L Potassium Level 3.1 MEQ/L Chloride Level 95 MEQ/L Carbon Dioxide Level 24.4 MEQ/L Anion Gap 11 MEQ/L Estimat Glomerular Filtration Rate 23 ML/MIN Urine Color YELLOW Urine Turbidity CLOUDY Urine pH 5.5 Urine Specific [place] 1.011 Urine Protein TRACE mg/dL Urine Glucose (UA) NEG mg/dL Urine Ketones NEG mg/dL Urine Occult Blood MOD Urine Nitrite POS Urine Bilirubin NEG Urine Leukocyte Esterase MOD Urine RBC 4-9 /hpf Urine WBC 50-99 /hpf Urine Squamous Epithelial Cells 0-5 /hpf Urine Bacteria MANY /hpf Microscopic Urinalysis Comment CULTURE INDICATED MDM Medical Decision Making Medical Screen Exam Complete: Yes Emergency Medical Condition: Yes Medical Record Reviewed: Yes Interpretation(s) The complete metabolic profile shows a BUN of 26, creatinine 2.1, GFR of 23 with GOT of 80, sodium 1:30, potassium 3.1 but is otherwise normal. The CBC shows white count of 12,200 with 78% neutrophils but is otherwise unremarkable. The ultrasound is normal on the left leg, no DVT. The urine shows cloudy turbidity, moderate blood, positive nitrite, moderate leukocyte esterase with 50 -99 white cells and 4-9 red cells and many bacteria and culture is indicated. Differential Diagnosis Cellulitis, DVT, urinary tract infection, electrolyte disorder, allergic reaction-unlikely, renal insufficiency, anemia Narrative Course The patient has cellulitis of her left lower extremity. She has a urinary tract infection but there is no evidence for DVT. She also has renal insufficiency. Plan: The patient be put on doxycycline and clindamycin which should treat the cellulitis and a urinary tract infection. She should follow-up with her primary care physician as soon as possible. She was strongly urged to be admitted for IV antibiotics but she declined, she promises she will return if she does not get better. Additional Instructions: The clindamycin is every 6 hours and the doxycycline is one tablet every 12 hours. As we discussed, return immediately if you do not get better. Follow- up with Dr. Etienne as soon as possible this week. Increase the amount of by mouth liquids, you do have a urinary tract infection. Med/Other Pt SpecificInfo: Prescription(s) given Scripts Doxycycline Hyclate (Doxycycline Hyclate) 100 Mg Cap 100 MG PO BID for Infection, #20 CAP 0 Refills Prov: Sunday Ashley MD 07/23/17 Clindamycin (Clindamycin) 300 Mg Cap 300 MG PO Q6H for Infection for 10 Days, CAP 0 Refills Prov: Sunday Ashley MD 07/23/17 Disposition: 01 DISCHARGE HOME Condition: Stable Sunday Ashley MD Jul 23, 2017 22:02
[2017-07-23 22:14] LABS: AUTOMATED NEUTROPHIL # 9.7 TH/MM3 (1.8-7.7); BASOPHIL % 0.4 % (0.0-2.0); EOSINOPHIL % 0.4 % (0.0-4.0); HEMATOCRIT 39.7 % (35.0-46.0); LYMPH % 15.8 % (9.0-44.0); LYMPHOCYTE # 1.9 TH/MM3 (1.0-4.8); MEAN CELL VOLUME 91.3 FL (80.0-100.0); MEAN CORPUSCULAR HEMOGLOBIN 31.3 PG (27.0-34.0); MEAN CORPUSCULAR HGB CONC 34.3 % (32.0-36.0); MONO % 5.2 % (0.0-8.0); NEUT % 78.2 % (16.0-70.0); PLATELET COUNT 187 TH/MM3 (150-450); RED BLOOD COUNT 4.35 MIL/MM3 (4.00-5.30); RED CELL DISTRIBUTION WIDTH 11.8 % (11.6-17.2); WHITE BLOOD COUNT 12.2 TH/MM3 (4.0-11.0)
[2017-07-23 22:15] LABS: HEMO FLAGS DIFF FINAL
[2017-07-23 22:22] LABS: CHLORIDE 95 MEQ/L (98-107); POTASSIUM 3.1 MEQ/L (3.5-5.1); SODIUM (NA) 130 MEQ/L (136-145)
[2017-07-23 22:26] LABS: ANION GAP 11 MEQ/L (5-15); BICARBONATE 24.4 MEQ/L (21.0-32.0); BLOOD UREA NITROGEN 46 MG/DL (7-18)
[2017-07-23 22:29] LABS: ALT (GPT) 45 U/L (10-53); AST (GOT) 80 U/L (15-37); GLOMERULAR FILTRATION RATE 23 ML/MIN (>89)
[2017-07-23 22:30] LABS: TOTAL BILIRUBIN ADULT 0.6 MG/DL (0.2-1.0)
[2017-07-23 22:32] LABS: ALKALINE PHOSPHATASE 106 U/L (45-117)
[2017-07-23 22:51] LABS: BLOOD, URINE MOD (NEG); GLUCOSE,URINE NEG (NEG); KETONE, URINE NEG (NEG); NITRITE,URINE POS (NEG); PH, URINE 5.5 (5.0-8.5)
[2017-07-23 22:57] LABS: URINE COLOR YELLOW (YELLW/STRAW)
[2017-07-23 22:58] LABS: BACTERIA, URINE MANY /hpf; COMMENT (UR) CULTURE INDICATED; CULTURE IF INDICATED CULTURE INDICATED; SQUAMOUS EPITHELIAL CELL URINE 0-5 /hpf (0-5)
--- NOTE | 2017-07-23 23:15 | RADRPT ---
EXAM DATE/TIME: 07/23/2017 22:42 [facility] COMPARISON: No previous studies available for comparison. [facility], US leg venous doppler March 29, 2017[facility], US leg venous doppler , June 11, 2016 INDICATIONS : Left leg redness and swelling. MEDICAL HISTORY : Hypercholesterolemia. Hypertension. Hepatitis B. Neuropathy. Sleep apnea. Hyperlipidemia. SURGICAL HISTORY : Hysterectomy. Right cataract. Bladder repair. Thumb surgery. ENCOUNTER: Initial ACUITY: 3 days PAIN SCORE: 5/10 LOCATION: Left leg. TECHNIQUE: Venous ultrasound of the leg was performed from the inguinal ligament to the proximal calf. Real-jose e, color Doppler and spectral tracing, compression and augmentation techniques were used. FINDINGS: There is normal compressibility of the deep venous system from the inguinal region to the proximal ca lf. No echogenic clot is seen in the lumen of the common femoral, femoral, popliteal, and posterior tibial veins. There is a normal response of the venous system to proximal and distal augmentation an d respiration. CONCLUSION: Normal examination. Geoffrey Hightower MD on July 23, 2017 at 23:13 Board Certified Radiologist. This report was verified electronically.
[2017-07-23] MEDS ORDERED: DOXY100C PO (23:43)
[2017-07-23] MEDS ORDERED: CLIN1CAP6 PO (23:43)
[2017-07-23] MEDS ORDERED: CLINDAMYCIN INJ 600 MG in SODIUM CHLORIDE 0.9% INJ 100 ML IV ONE (23:45)
[2017-07-23] MEDS ORDERED: VANCOMYCIN INJ 1,000 MG in SODIUM CHLOR 0.9% 250 ML INJ 250 ML IV ONE (23:45)
[2017-07-23] MEDS ORDERED: DOXYCYCLINE HYCLATE 100 MG CAP PO ONE (23:45)
[2017-07-24] MEDS ORDERED: SODIUM CHLOR 0.9% 1000 ML INJ 1,000 ML IV SCH
[2017-07-24 00:01] VITALS: BP 132/55; PULSE 69; RESP 18; O2SAT 96
[2017-07-24 01:38] VITALS: BP 136/60; TEMP 98.7
== END 2017-07-24 01:38 | disposition home or self-care (01) ==
LOC: PHED 21:03
DX: L03.116 Cellulitis of left lower limb (principal); N39.0 Urinary tract infection, site not specified; N28.9 Disorder of kidney and ureter, unspecified; B96.20 Unspecified Escherichia coli [E. coli] as the cause of diseases classified elsewhere; E11.9 Type 2 diabetes mellitus without complications; I10 Essential (primary) hypertension; E07.9 Disorder of thyroid, unspecified; E78.00 Pure hypercholesterolemia, unspecified; G47.30 Sleep apnea, unspecified; Z87.39 Personal history of other diseases of the musculoskeletal system and connective tissue; Z87.19 Personal history of other diseases of the digestive system; Z87.448 Personal history of other diseases of urinary system; Z86.69 Personal history of other diseases of the nervous system and sense organs; Z87.2 Personal history of diseases of the skin and subcutaneous tissue
CPT/HCPCS: 80053; 81001; 85025; 87077; 87086; 87186; 93971; 96365; 96367; 99285; J3370; J7030; J7050

== ENCOUNTER 2017-09-29 15:07 | Inpatient (IN) | payer OTHER, MEDICARE ==
[~2017-09-29] VITALS: Ht 160 cm; Wt 95.1 kg
[2017-09-29] VITALS (9 sets, daily range): BP systolic 115–189; BP diastolic 57–83; PULSE 76–103; RESP 16–22; TEMP 97–100.5; O2SAT 92–97
[~2017-09-29 15:07] MED LIST changes: -AMLO5TAB2 PO; +CLIN300C5 PO; +DOXY100C PO; +HYDR25TA5 PO
[2017-09-29] MEDS ORDERED: SODIUM CHLOR 0.9% 1000 ML INJ 1,000 ML IV ONE ×2 (15:37→19:00)
[2017-09-29] MEDS ORDERED: VANCOMYCIN INJ 1,500 MG in SODIUM CHLORID 0.9% 500 ML INJ 500 ML IV STA (15:37)
--- NOTE | 2017-09-29 15:37 | PD ---
HPI Chief Complaint: Skin Problem Time Seen by Provider: 15:32 Travel History International Travel<30 days: No Contact w/Intl Traveler<30days: No Traveled to known affect area: No History of Present Illness HPI 72-year-old female reports about 1 week of left lower extremity erythema warmth and tenderness. It was first noticed after a fall. She's had similar episodes of warmth erythema and tenderness diagnosis cellulitis and treated with antibiotics. Prior regimens include clindamycin and doxycycline. Past medical history includes diabetes sleep apnea and obesity. Timing constant. Severity moderate. PFSH Past Medical History Arthritis: Yes Asthma: No Anxiety: No Depression: No Heart Rhythm Problems: No Cancer: No Cardiovascular Problems: Yes (htn) High Cholesterol: Yes Chest Pain: No Congestive Heart Failure: No COPD: No Diabetes: Yes (hx of) Diminished Hearing: No Endocrine: Yes Gastrointestinal Disorders: Yes GERD: No Genitourinary: Yes (INTERMITTENT INCONTINENT) Hiatal Hernia: No Hypertension: Yes Immune Disorder: No Kidney Stones: No Musculoskeletal: Yes (BONE SPUR ON SPINE) Neurologic: Yes (NEUROPATHY) Psychiatric: No Reproductive: No Respiratory: Yes (SLEEP APNEA) Integumentary: Yes (ROSACEA) Renal Failure: No Sleep Apnea: Yes (CPAP AT NIGHT) Thyroid Disease: Yes Ulcer: Yes ?: Not Menopausal: Yes Past Surgical History AICD: No Appendectomy: Yes Eye Surgery: Yes (RIGHT CATARACT 12/13/13) Genitourinary Surgery: Yes (URETHRAL REPAIR,BLADDER REPAIR) Gynecologic Surgery: Yes (total hysterectomy) Hysterectomy: Yes Joint Replacement: No Pacemaker: No Other Surgery: Yes (BLADDER REPAIR, thumb surgery) Social History Alcohol Use: No Tobacco Use: No Substance Use: No Allergies-Medications (Allergen,Severity, Reaction): Coded Allergies: Sulfa (Sulfonamide Antibiotics) (Unverified Allergy, Severe, SWELLING, 09/29/17) codeine (Unverified Allergy, Severe, UNKNOWN REACTION, 09/29/17) cyclobenzaprine (Unverified Allergy, Severe, LEG CRAMPS, 09/29/17) duloxetine (Unverified Allergy, Severe, UNKNOWN REACTION, 09/29/17) lisinopril (Unverified Allergy, Severe, COUGH, 09/29/17) lovastatin (Unverified Allergy, Severe, LEG CRAMPS, 09/29/17) penicillin G (Unverified Allergy, Severe, UNKNOWN REACTION, 09/29/17) potassium (Unverified Allergy, Severe, LEG CRAMPS, 09/29/17) potassium bicarbonate (Unverified Allergy, Severe, LEG CRAMPS, 09/29/17) potassium chloride (Unverified Allergy, Severe, LEG CRAMPS, 09/29/17) potassium iodide (Unverified Allergy, Severe, LEG CRAMPS, 09/29/17) potassium phosphate (Unverified Allergy, Severe, LEG CRAMPS, 09/29/17) sitagliptin (Unverified Allergy, Severe, UNKNOWN REACTION, 09/29/17) sulfamethoxazole (Unverified Allergy, Severe, UNKNOWN REACTION, 09/29/17) telmisartan (Unverified Allergy, Severe, SWELLING, 09/29/17) trimethoprim (Unverified Allergy, Severe, UNKNOWN REACTION, 09/29/17) *MDRO Multi-Drug Resistant Organism (Verified Adverse Reaction, Unknown, 09/29/17) 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 Reported Meds & Prescriptions Reported Meds & Active Scripts Active Reported Hydrochlorothiazide 25 Mg Tab 25 Mg PO DAILY Losartan (Losartan Potassium) 100 Mg Tab 100 Mg PO DAILY Review of Systems Except as stated in HPI: all other systems reviewed are Neg General / Constitutional: No: Fever Skin: Positive Lesions Physical Exam Narrative GENERAL: Well-nourished well-developed 72-year-old female mild distress SKIN: Warm and dry. HEAD: Atraumatic. Normocephalic. EYES: Pupils equal and round. No scleral icterus. No injection or drainage. ENT: No nasal bleeding or discharge. Mucous membranes pink and moist. NECK: Trachea midline. No JVD. CARDIOVASCULAR: Regular rhythm. Tachycardia to about 100 105. RESPIRATORY: No accessory muscle use. Clear to auscultation. Breath sounds equal bilaterally. GASTROINTESTINAL: Abdomen soft, non-tender, nondistended. Hepatic and splenic margins not palpable. MUSCULOSKELETAL: Extremities without clubbing, cyanosis, or edema. No obvious deformities. Erythema distal half of the lower leg differential with warmth and tenderness. No abscess. NEUROLOGICAL: Awake and alert. No obvious cranial nerve deficits. Motor grossly within normal limits. Five out of 5 muscle strength in the arms and legs. Normal speech. PSYCHIATRIC: Appropriate mood and affect; insight and judgment normal. Data Data Last Documented VS Vital Signs Date Time Temp Pulse Resp B/P (MAP) Pulse Ox O2 Delivery O2 Flow Rate FiO2 09/29/17 16:30 96 20 179/60 (99) 97 Nasal Cannula 2.00 09/29/17 15:35 98.9 vital signs reviewed Orders Orders Complete Blood Count With Diff (09/29/17 15:37) Comprehensive Metabolic Panel (09/29/17 15:37) Lactic Acid Sepsis Protocol (09/29/17 15:37) Urinalysis - C+S If Indicated (09/29/17 15:37) Blood Culture (09/29/17 15:37) Chest, Single Ap (09/29/17 15:37) Blood Glucose (09/29/17 15:37) Ecg Monitoring (09/29/17 15:37) Iv Access Insert/Monitor (09/29/17 15:37) Oximetry (09/29/17 15:37) Oxygen Administration (09/29/17 15:37) Acetaminophen (Tylenol) (09/29/17 15:45) Vancomycin Inj (Vancomycin Inj) (09/29/17 15:37) Sodium Chlor 0.9% 1000 Ml Inj (Ns 1000 M (09/29/17 15:37) Admit Order (Ed Use Only) (09/29/17 ) Vital Signs (Adult) Q4H (09/29/17 17:08) Activity Oob With Assistance (09/29/17 17:08) Labs Laboratory Tests Test 09/29/17 15:35 White Blood Count 16.6 TH/MM3 Red Blood Count 4.34 MIL/MM3 Hemoglobin 13.8 GM/DL Hematocrit 40.1 % Mean Corpuscular Volume 92.3 FL Mean Corpuscular Hemoglobin 31.8 PG Mean Corpuscular Hemoglobin Concent 34.4 % Red Cell Distribution Width 12.8 % Platelet Count 196 TH/MM3 Mean Platelet Volume 7.9 FL Neutrophils (%) (Auto) 94.3 % Lymphocytes (%) (Auto) 4.5 % Monocytes (%) (Auto) 0.7 % Eosinophils (%) (Auto) 0.1 % Basophils (%) (Auto) 0.4 % Neutrophils # (Auto) 15.7 TH/MM3 Lymphocytes # (Auto) 0.7 TH/MM3 Monocytes # (Auto) 0.1 TH/MM3 Eosinophils # (Auto) 0.0 TH/MM3 Basophils # (Auto) 0.1 TH/MM3 CBC Comment DIFF FINAL Differential Comment Blood Urea Nitrogen 17 MG/DL Creatinine 0.91 MG/DL Random Glucose 165 MG/DL Total Protein 8.6 GM/DL Albumin 3.7 GM/DL Calcium Level 9.5 MG/DL Alkaline Phosphatase 118 U/L Aspartate Amino Transf (AST/SGOT) 45 U/L Alanine Aminotransferase (ALT/SGPT) 38 U/L Total Bilirubin 0.8 MG/DL Sodium Level 135 MEQ/L Potassium Level 3.9 MEQ/L Chloride Level 101 MEQ/L Carbon Dioxide Level 24.5 MEQ/L Anion Gap 10 MEQ/L Estimat Glomerular Filtration Rate 60 ML/MIN Lactic Acid Level 2.5 mmol/L [facility] Medical Decision Making Medical Screen Exam Complete: Yes Emergency Medical Condition: Yes Medical Record Reviewed: Yes Differential Diagnosis sepsis, cellulitis, abscess Narrative Course CBC & BMP Diagram 09/29/17 15:35 Total Protein 8.6 H, Albumin 3.7, Calcium Level 9.5, Alkaline Phosphatase 118 H , Aspartate Amino Transf (AST/SGOT) 45 H, Alanine Aminotransferase (ALT/SGPT) 38 , Total Bilirubin 0.8 Lactic acid 2.5 Last 24 hours Impressions Chest X-Ray 09/29/17 1537 Signed Impressions: Service Date/Time: September 15:58 - CONCLUSION: Underinflated examination. No acute cardiopulmonary abnormality is identified. Fernando Hannon MD Vancomycin started. Blood cultures drawn. Pt has cellulitis LLE and fever with work up concerning for sepsis. Case d/w Dr Marcos Sepsis Criteria SIRS Criteria (2 or more): Heart rate over 90, WBC > 13002, < 4000 or > 10% bands Sepsis Criteria (SIRS+source): Infect source susp/known Severe Sepsis (+one): Lactate >2 Diagnosis Primary Impression: Sepsis affecting skin Admitting Information Admitting Physician Requests: Admit Gerald Boone MD Sep 29, 2017 15:37
[2017-09-29] MEDS ORDERED: ACETAMINOPHEN 325 MG TAB PO ONE (15:45)
--- NOTE | 2017-09-29 16:12 | RADRPT ---
EXAM DATE/TIME: 09/29/2017 15:58 [facility] COMPARISON: No previous studies available for comparison. INDICATIONS : Fever. MEDICAL HISTORY : Hypertension. Diabetes mellitus type II. Hepatitis B. SURGICAL HISTORY : None. ENCOUNTER: Initial ACUITY: 1 day PAIN SCORE: 0/10 LOCATION: Bilateral chest FINDINGS: Portable AP view of the chest demonstrates a normal-sized cardiac silhouette. No effusion, consolidat ion, or pneumothorax is visualized. The bones and soft tissues demonstrate no acute abnormality. Lung s are underinflated. CONCLUSION: Underinflated examination. No acute cardiopulmonary abnormality is identified. Fernando Hannon MD on September 29, 2017 at 16:10 Board Certified Radiologist. This report was verified electronically.
[2017-09-29 16:14] LABS: AUTOMATED NEUTROPHIL # 15.7 TH/MM3 (1.8-7.7); BASOPHIL # 0.1 TH/MM3 (0-0.2); BASOPHIL % 0.4 % (0.0-2.0); EOSINOPHIL % 0.1 % (0.0-4.0); HEMATOCRIT 40.1 % (35.0-46.0); LYMPH % 4.5 % (9.0-44.0); LYMPHOCYTE # 0.7 TH/MM3 (1.0-4.8); MEAN CELL VOLUME 92.3 FL (80.0-100.0); MEAN CORPUSCULAR HEMOGLOBIN 31.8 PG (27.0-34.0); MEAN CORPUSCULAR HGB CONC 34.4 % (32.0-36.0); MONO % 0.7 % (0.0-8.0); NEUT % 94.3 % (16.0-70.0); PLATELET COUNT 196 TH/MM3 (150-450); RED BLOOD COUNT 4.34 MIL/MM3 (4.00-5.30); RED CELL DISTRIBUTION WIDTH 12.8 % (11.6-17.2); WHITE BLOOD COUNT 16.6 TH/MM3 (4.0-11.0)
[2017-09-29 16:25] LABS: HEMO FLAGS DIFF FINAL
[2017-09-29 16:36] LABS: CHLORIDE 101 MEQ/L (98-107); POTASSIUM 3.9 MEQ/L (3.5-5.1); SODIUM (NA) 135 MEQ/L (136-145)
[2017-09-29 16:40] LABS: ANION GAP 10 MEQ/L (5-15); BICARBONATE 24.5 MEQ/L (21.0-32.0); BLOOD UREA NITROGEN 17 MG/DL (7-18)
[2017-09-29 16:43] LABS: ALT (GPT) 38 U/L (10-53); AST (GOT) 45 U/L (15-37); GLOMERULAR FILTRATION RATE 60 ML/MIN (>89)
[2017-09-29 16:45] LABS: TOTAL BILIRUBIN ADULT 0.8 MG/DL (0.2-1.0)
[2017-09-29 16:46] LABS: ALKALINE PHOSPHATASE 118 U/L (45-117)
[2017-09-29] MEDS ORDERED: LACTULOSE SYRUP 20 GM/30 ML CUP PO PRN (17:45)
[2017-09-29] MEDS ORDERED: cloNIDine HCL 0.1 MG TAB PO PRN (17:45)
[2017-09-29] MEDS ORDERED: SODIUM CHLORIDE 0.9% FLUSH 10 ML FLUSH IV FLUSH PRN (17:45)
[2017-09-29] MEDS ORDERED: NALOXONE HCL 0.4 MG/ML AMP IV PUSH PRN (17:45)
[2017-09-29] MEDS ORDERED: Vancomycin Consult Pharmacy 1 EA OTHER SCH (17:45)
[2017-09-29] MEDS ORDERED: SENNOSIDES 8.6 MG TAB PO PRN (17:45)
[2017-09-29] MEDS ORDERED: BISACODYL 10 MG SUPP RECTAL PRN (17:45)
[2017-09-29] MEDS ORDERED: ONDANSETRON HCL 4 MG/2 ML VIAL IVP PRN (17:45)
[2017-09-29] MEDS ORDERED: MAGNESIUM HYDROXIDE SUSP 30 ML CUP PO PRN (17:45)
[2017-09-29] MEDS ORDERED: VANCOMYCIN 1,500 MG/NS 500 ML IV ONE ×2 (18:00)
[2017-09-29 18:06] LABS: LACTIC ACID GHOST NOT REPORTABLE
[2017-09-29 18:11] LABS: GLUCOSE,URINE NEG (NEG); KETONE, URINE NEG (NEG); NITRITE,URINE POS (NEG); PH, URINE 5.5 (5.0-8.5)
[2017-09-29 18:16] LABS: BLOOD, URINE TRACE (NEG)
[2017-09-29 18:19] LABS: URINE COLOR YELLOW (YELLW/STRAW)
[2017-09-29 18:20] LABS: BACTERIA, URINE MANY /hpf; COMMENT (UR) CULTURE INDICATED; CULTURE IF INDICATED CULTURE INDICATED
--- NOTE | 2017-09-29 19:27 | HHI.HP ---
[facility] Rachel Etienne MD Admission Diagnosis Sepsis 2/2 Cellulitis LLE Diagnoses: Travel History International Travel<30 Days: No Contact w/Intl Traveler <30 Da: No Traveled to Known Affected Are: No History of Present Illness 72-year-old female with history of hypertension, venous insufficiency, obstructive sleep apnea who presents with 1 week of worsening left lower extremity pain in the ankle which she described as sharp, intermittent and shooting up her left leg. She also reports worsening redness of the area over the past week. She reports chronic unmeasured fevers since December of this year. Denies any nausea or vomiting. Denies any chest pain or shortness of breath. Patient with very tangential conversation, however alert and oriented 4. Daughter at bedside assists with history. Patient does have a history of vein surgery to bilateral legs with what appears to be chronic venous insufficiency worse on the left. She says she is been told to elevate them, where compression hose, however compliance appears to have been an issue. She reports having an ultrasound to rule out DVT several weeks ago. Review of Systems Except as stated in HPI: all other systems reviewed are Neg Past Family Social History Past Medical History Obstructive sleep apnea Hypertension Chronic venous insufficiency Neuropathy Hyperlipidemia Patient reports history of bulging disks in her neck Past Surgical History Urethral repair, bladder repair Hysterectomy Cataract surgery Appendectomy Reported Medications Reported Meds & Active Scripts Active Reported Hydrochlorothiazide 25 Mg Tab 25 Mg PO DAILY Losartan (Losartan Potassium) 100 Mg Tab 100 Mg PO DAILY Allergies: Coded Allergies: Sulfa (Sulfonamide Antibiotics) (Unverified Allergy, Severe, SWELLING, 09/29/17) codeine (Unverified Allergy, Severe, UNKNOWN REACTION, 09/29/17) cyclobenzaprine (Unverified Allergy, Severe, LEG CRAMPS, 09/29/17) duloxetine (Unverified Allergy, Severe, UNKNOWN REACTION, 09/29/17) lisinopril (Unverified Allergy, Severe, COUGH, 09/29/17) lovastatin (Unverified Allergy, Severe, LEG CRAMPS, 09/29/17) penicillin G (Unverified Allergy, Severe, UNKNOWN REACTION, 09/29/17) potassium (Unverified Allergy, Severe, LEG CRAMPS, 09/29/17) potassium bicarbonate (Unverified Allergy, Severe, LEG CRAMPS, 09/29/17) potassium chloride (Unverified Allergy, Severe, LEG CRAMPS, 09/29/17) potassium iodide (Unverified Allergy, Severe, LEG CRAMPS, 09/29/17) potassium phosphate (Unverified Allergy, Severe, LEG CRAMPS, 09/29/17) sitagliptin (Unverified Allergy, Severe, UNKNOWN REACTION, 09/29/17) sulfamethoxazole (Unverified Allergy, Severe, UNKNOWN REACTION, 09/29/17) telmisartan (Unverified Allergy, Severe, SWELLING, 09/29/17) trimethoprim (Unverified Allergy, Severe, UNKNOWN REACTION, 09/29/17) *MDRO Multi-Drug Resistant Organism (Verified Adverse Reaction, Unknown, 09/29/17) 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 Family History Family history reviewed with patient and found to be currently noncontributory. Social History Nonsmoker. Nondrinker. Denies illicit drugs. Physical Exam Vital Signs Vital Signs Date Time Temp Pulse Resp B/P (MAP) Pulse Ox O2 Delivery O2 Flow Rate FiO2 09/29/17 18:35 18 96 Room Air 09/29/17 18:34 94 18 131/58 (82) 96 Room Air 09/29/17 18:31 18 09/29/17 18:00 96 Room Air 09/29/17 16:30 96 20 179/60 (99) 97 Nasal Cannula 2.00 09/29/17 15:40 22 94 Nasal Cannula 2.00 09/29/17 15:40 94 Nasal Cannula 2.00 09/29/17 15:35 98.9 95 22 189/59 (102) 92 Room Air 09/29/17 15:13 100.5 103 18 150/83 (105) 94 Physical Exam GENERAL: This is a well-nourished, well-developed patient, in no apparent distress. Alert and oriented 4. SKIN: No rashes, ecchymoses or lesions. Cool and dry. HEAD: Atraumatic. Normocephalic. No temporal or scalp tenderness. EYES: Pupils equal round and reactive. Extraocular motions intact. No scleral icterus. No injection or drainage. ENT: Nose without bleeding, purulent drainage or septal hematoma. Throat without erythema, tonsillar hypertrophy or exudate. Uvula midline. Airway patent. NECK: Trachea midline. No JVD or lymphadenopathy. Supple, nontender, no meningeal signs. CARDIOVASCULAR: Regular rate and rhythm without murmurs, gallops, or rubs. RESPIRATORY: Clear to auscultation. Breath sounds equal bilaterally. No wheezes , rales, or rhonchi. GASTROINTESTINAL: Abdomen soft, non-tender, nondistended. No hepato-splenomegaly , or palpable masses. No guarding. MUSCULOSKELETAL: Extremities without clubbing, cyanosis.. No joint tenderness, effusion. No calf tenderness. Negative Homans sign bilaterally. Left lower extremity with erythema extending from mid foot to mid calf. No broken skin. 1 + edema on the left, no edema on the right. NEUROLOGICAL: Awake and alert. Cranial nerves II through XII intact. Motor and sensory grossly within normal limits. Five out of 5 muscle strength in all muscle groups. Normal speech. Laboratory Laboratory Tests Test 09/29/17 15:35 09/29/17 17:30 09/29/17 18:28 White Blood Count 16.6 Red Blood Count 4.34 Hemoglobin 13.8 Hematocrit 40.1 Mean Corpuscular Volume 92.3 Mean Corpuscular Hemoglobin 31.8 Mean Corpuscular Hemoglobin Concent 34.4 Red Cell Distribution Width 12.8 Platelet Count 196 Mean Platelet Volume 7.9 Neutrophils (%) (Auto) 94.3 Lymphocytes (%) (Auto) 4.5 Monocytes (%) (Auto) 0.7 Eosinophils (%) (Auto) 0.1 Basophils (%) (Auto) 0.4 Neutrophils # (Auto) 15.7 Lymphocytes # (Auto) 0.7 Monocytes # (Auto) 0.1 Eosinophils # (Auto) 0.0 Basophils # (Auto) 0.1 CBC Comment DIFF FINAL Differential Comment Blood Urea Nitrogen 17 Creatinine 0.91 Random Glucose 165 Total Protein 8.6 Albumin 3.7 Calcium Level 9.5 Alkaline Phosphatase 118 Aspartate Amino Transf (AST/SGOT) 45 Alanine Aminotransferase (ALT/SGPT) 38 Total Bilirubin 0.8 Sodium Level 135 Potassium Level 3.9 Chloride Level 101 Carbon Dioxide Level 24.5 Anion Gap 10 Estimat Glomerular Filtration Rate 60 Lactic Acid Level 2.5 3.3 Urine Color YELLOW Urine Turbidity CLOUDY Urine pH 5.5 Urine Specific [place] 1.015 Urine Protein NEG Urine Glucose (UA) NEG Urine Ketones NEG Urine Occult Blood TRACE Urine Nitrite POS Urine Bilirubin NEG Urine Leukocyte Esterase TRACE Urine WBC 6-8 Urine WBC Clumps FEW Urine Bacteria MANY Microscopic Urinalysis Comment CULTURE INDICATED Date/Time Source Procedure Growth Status 09/29/17 15:40 Blood Peripheral Aerobic Blood Culture Pending Received 09/29/17 15:40 Blood Peripheral Anaerobic Blood Culture Pending Received 09/29/17 17:30 Urine Clean Catch Urine Culture Pending Received Result Diagram: 09/29/17 1535 09/29/17 1535 Imaging Last Impressions Chest X-Ray 09/29/17 1537 Signed Impressions: Service Date/Time: September 15:58 - CONCLUSION: Underinflated examination. No acute cardiopulmonary abnormality is identified. MD Mayank Moses VTE Risk Assessment Mayank VTE Risk Assessment: Mod/High Risk (score >= 2) Caprini Risk Assessment Model Point Value = 1 Point Value = 2 Point Value = 3 Point Value = 5 Age 41-60 Minor surgery BMI > 25 kg/m2 Swollen legs Varicose veins or History of unexplained or recurrent spontaneous Oral contraceptives or hormone replacement Sepsis (< 1 month) Serious lung disease, including pneumonia (< 1 month) Abnormal pulmonary function Acute myocardial infarction Congestive heart failure (< 1 month) History of inflammatory bowel disease Medical patient at bed rest Age 61-74 Arthroscopic surgery Major open surgery (> 45 min) Laparoscopic surgery (> 45 min) Malignancy Confined to bed (> 72 hours) Immobilizing plaster cast Central venous access Age >= 75 History of VTE Family history of VTE Factor V Leiden Prothrombin [id number] Lupus anticoagulant Anticardiolipin antibodies Elevated serum homocysteine Heparin-induced thrombocytopenia Other congenital or acquired thrombophilia Stroke (< 1 month) Elective arthroplasty Hip, pelvis, or leg fracture Acute spinal cord injury (< 1 month) Prophylaxis Regimen Total Risk Factor Score Risk Level Prophylaxis Regimen 0-1 Low Early ambulation 2 Moderate Order ONE of the following: *Sequential Compression Device (SCD) *Heparin 5000 units SQ BID 3-4 Higher Order ONE of the following medications: *Heparin 5000 units SQ TID *Enoxaparin/Lovenox 40 mg SQ daily (WT < 150 kg, CrCl > 30 mL/min) *Enoxaparin/Lovenox 30 mg SQ daily (WT < 150 kg, CrCl > 10-29 mL/min) *Enoxaparin/Lovenox 30 mg SQ BID (WT < 150 kg, CrCl > 30 mL/min) AND/OR *Sequential Compression Device (SCD) 5 or more Highest Order ONE of the following medications: *Heparin 5000 units SQ TID (Preferred with Epidurals) *Enoxaparin/Lovenox 40 mg SQ daily (WT < 150 kg, CrCl > 30 mL/min) *Enoxaparin/Lovenox 30 mg SQ daily (WT < 150 kg, CrCl > 10-29 mL/min) *Enoxaparin/Lovenox 30 mg SQ BID (WT < 150 kg, CrCl > 30 mL/min) AND *Sequential Compression Device (SCD) Assessment and Plan Assessment and Plan //Severe Sepsis -With leukocytosis 16.6, tachycardia in the 90s, left lower extremity cellulitis. -Lactate 2.3, subsequently 3.3 -Start broad-spectrum antibiotics -Follow blood cultures, urine culture -Fluid bolus. Thiamine by mouth. Follow-up repeat lactate. //Hypertension. Blood pressure acceptable. Continue home losartan. Hold Hydrocort thiazide for now. Kidney function at baseline. //Chronic cirrhosis. -AST, ALC better than baseline. INR pending. //Left lower extremity venous stasis cellulitis -Acute on chronic. Initially started in December of this year. -With history of vein surgery in the past. -Elevation. Antibiotics. Dillon wraps. A performed limited bedside ultrasound which showed compressibility of popliteal vein on the left. Ultrasound ordered to rule out DVT. Discussed extensively with the patient. Continue to monitor. //Possible acute UTI. -Urinalysis with white blood cell clumps. Follow-up culture. //Obstructive sleep apnea. Continue CPAP. /DVT prophylaxis. Heparin. Discussed Condition With Patient, nurse, daughter at bedside, ED physician. Physician Certification 2 Midnight Certification Type: Admission for Inpatient Services Order for Inpatient Services The services are ordered in accordance with Medicare regulations or non- Medicare payer requirements, as applicable. In the case of services not specified as inpatient-only, they are appropriately provided as inpatient services in accordance with the 2-midnight benchmark. Estimated LOS (days): 3 days is the estimated time the patient will need to remain in the hospital, assuming treatment plan goals are met and no additional complications. Post-Hospital Plan: Not yet determined Wagner Pisano MD Sep 29, 2017 19:26
[2017-09-29] MEDS ORDERED: HYDR25TA5 PO (19:29)
[2017-09-29] MEDS: LEVOFLOXACIN 750 MG TAB PO SCH (19:47)
[2017-09-29] MEDS: HEPARIN SODIUM - SQ 10,000 UNITS/ML VIAL SQ SCH (19:48)
[2017-09-29 19:52] LABS: INTERNATIONAL NORMALIZED RATIO 1.1 RATIO
[2017-09-29] MEDS ORDERED: THIAMINE HCL 100 MG TAB PO ONE (20:00)
[2017-09-29] MEDS: INSULIN ASPART SUPPLEMENTAL SCALE SQ SCH (20:53)
[2017-09-29] MEDS: SODIUM CHLORIDE 0.9% FLUSH 10 ML FLUSH IV FLUSH SCH (21:00)
[2017-09-29] MEDS: SODIUM CHLOR 0.9% 1000 ML INJ 1,000 ML IV SCH (21:05)
[2017-09-29 21:09] LABS: HEMOGLOBIN A1a 0.9 %; HEMOGLOBIN A1b 1.8 %; HEMOGLOBIN LA1C 2.6 %
[2017-09-30] VITALS: BP 116/55; PULSE 73; RESP 20; TEMP 100; O2SAT 96
[2017-09-30 04:00] VITALS: BP 116/56; PULSE 66; RESP 20; TEMP 98.1; O2SAT 95
[2017-09-30 08:00] VITALS: BP 118/62; PULSE 77; RESP 16; TEMP 98; O2SAT 95
[2017-09-30] MEDS: INSULIN ASPART SUPPLEMENTAL SCALE SQ SCH ×4 (08:00→21:00)
[2017-09-30] MEDS: HEPARIN SODIUM - SQ 10,000 UNITS/ML VIAL SQ SCH ×2 (08:00→20:00)
--- NOTE | 2017-09-30 08:25 | RADRPT ---
EXAM DATE/TIME: 09/30/2017 07:48 [facility] COMPARISON: US LEG LEFT VENOUS DOPPLER, July 23, 2017, 22:42. EXTERNAL COMPARISON : [facility], US LEG, RIGHT VENOUS DOPPLER, December 20, 2007. INDICATIONS : Bilateral leg swelling. MEDICAL HISTORY : Hypercholesterolemia. Arthritis. Hepatitis B. Thyroid disease. HTN. Neuropathy. Sleep apnea. Hyperlip idemia. Ulcer. Heartburn. UTIs. Diabetes. Bone spur on spine. Rosacea. ESBL +E.Coli. SURGICAL HISTORY : Appendectomy.Hysterectomy. Right cataract surgery. Urethral repair. Bladder repair. Thumb surgery. Bl ood transfusions. ENCOUNTER: Subsequent ACUITY: 2 day PAIN SCORE: 4/10 LOCATION: Bilateral leg. TECHNIQUE: Venous ultrasound of the left and right leg was performed from the inguinal ligament to the proximal calf. Real-time, color Doppler and spectral tracing, compression and augmentation techniques were us ed. FINDINGS: RIGHT LEG: There is normal compressibility of the deep venous system from the inguinal region to the proximal ca lf. No echogenic clot is seen in the lumen of the common femoral, femoral, popliteal, and posterior tibial veins. There is a normal response of the venous system to proximal and distal augmentation an d respiration. LEFT LEG: There is normal compressibility of the deep venous system from the inguinal region to the proximal ca lf. No echogenic clot is seen in the lumen of the common femoral, femoral, popliteal, and posterior tibial veins. There is a normal response of the venous system to proximal and distal augmentation an d respiration. There is a avascular cystic structure in the right popliteal fossa measuring 2.7 x 0.9 x 1.3 cm. And the left inguinal region there is a single mildly enlarged lymph node measuring 3.6 x 2.8 x 1.5 cm. CONCLUSION: 1. No DVT is identified within either lower extremity. 2. Incidental right Lawton's cyst is identified measuring 2.7 cm. 3. There is a single mildly enlarged left inguinal lymph node. Fernando Hannon MD on September 30, 2017 at 8:22 Board Certified Radiologist. This report was verified electronically.
[2017-09-30] MEDS: SODIUM CHLORIDE 0.9% FLUSH 10 ML FLUSH IV FLUSH SCH ×2 (08:29→21:00)
[2017-09-30] MEDS: THIAMINE HCL 100 MG TAB PO SCH (08:50)
[2017-09-30] MEDS: LOSARTAN 50 MG TAB PO SCH (08:50)
[2017-09-30] MEDS ORDERED: HYDROCHLOROTHIAZIDE 25 MG TAB PO SCH (09:00)
[2017-09-30] MEDS ORDERED: VANCOMYCIN INJ 1,250 MG in SODIUM CHLOR 0.9% 250 ML INJ 250 ML IV SCH (10:00)
[2017-09-30] MEDS ORDERED: WALKER WHEELS/F1 MIS (10:02)
[2017-09-30 10:11] LABS: AUTOMATED NEUTROPHIL # 14.1 TH/MM3 (1.8-7.7); BASOPHIL # 0.2 TH/MM3 (0-0.2); EOSINOPHIL % 0.1 % (0.0-4.0); LYMPH % 7.8 % (9.0-44.0); LYMPHOCYTE # 1.2 TH/MM3 (1.0-4.8); MEAN CELL VOLUME 91.2 FL (80.0-100.0); MEAN CORPUSCULAR HEMOGLOBIN 31.7 PG (27.0-34.0); MEAN CORPUSCULAR HGB CONC 34.7 % (32.0-36.0); MONO % 3.2 % (0.0-8.0); NEUT % 87.9 % (16.0-70.0); PLATELET COUNT 147 TH/MM3 (150-450); RED BLOOD COUNT 3.62 MIL/MM3 (4.00-5.30); RED CELL DISTRIBUTION WIDTH 12.3 % (11.6-17.2)
[2017-09-30 10:20] LABS: CHLORIDE 103 MEQ/L (98-107); HEMO FLAGS DIFF FINAL; POTASSIUM 3.2 MEQ/L (3.5-5.1); SODIUM (NA) 135 MEQ/L (136-145)
[2017-09-30 10:34] LABS: ALKALINE PHOSPHATASE 73 U/L (45-117); ALT (GPT) 29 U/L (10-53); ANION GAP 8 MEQ/L (5-15); AST (GOT) 34 U/L (15-37); BICARBONATE 23.7 MEQ/L (21.0-32.0); BLOOD UREA NITROGEN 14 MG/DL (7-18); GLOMERULAR FILTRATION RATE 72 ML/MIN (>89); TOTAL BILIRUBIN ADULT 0.9 MG/DL (0.2-1.0)
[2017-09-30] MEDS: SODIUM CHLOR 0.9% 1000 ML INJ 1,000 ML IV SCH ×2 (10:52→18:50)
[2017-09-30 16:00] VITALS: BP 122/71; PULSE 81; RESP 17; TEMP 97.9; O2SAT 94
--- NOTE | 2017-09-30 16:33 | HHI.PR ---
Subjective Remarks Patient seen this morning around 10:30 AM. Says she is feeling all right. Denies any chest pain or shortness of breath. Says that left leg feels comfortable. Objective Vital Signs Date Time Temp Pulse Resp B/P (MAP) Pulse Ox O2 Delivery O2 Flow Rate FiO2 09/30/17 16:00 97.9 81 17 122/71 (88) 94 09/30/17 08:00 98.0 77 16 118/62 (80) 95 09/30/17 04:00 98.1 66 20 116/56 (76) 95 09/30/17 00:00 100.0 73 20 116/55 (75) 96 09/29/17 21:20 97.0 76 20 115/57 (76) 97 09/29/17 21:06 09/29/17 20:52 98.3 09/29/17 19:30 82 16 149/59 (89) 97 09/29/17 18:35 18 96 Room Air 09/29/17 18:34 94 18 131/58 (82) 96 Room Air 09/29/17 18:31 18 09/29/17 18:00 96 Room Air I/O 09/29/17 09/29/17 09/29/17 09/30/17 09/30/17 09/30/17 07:00 15:00 23:00 07:00 15:00 23:00 Intake Total 3015 ml 1720 ml 262.5 ml Output Total 450 ml Balance 2565 ml 1720 ml 262.5 ml Intake Oral 500 ml 720 ml IV Total 2515 ml 1000 ml 262.5 ml Output Urine Total 450 ml # Voids 1 2 # Bowel Movements 0 Result Diagram: 09/30/17 1005 09/30/17 1005 Objective Remarks GENERAL: Patient sitting up in recliner. Appears comfortable. Alert and oriented 3. Tangential conversation as before. Very pleasant. SKIN: Warm and dry. HEAD: Normocephalic. EYES: No scleral icterus. No injection or drainage. NECK: Supple, trachea midline. No JVD. CARDIOVASCULAR: Regular rate and rhythm without murmurs, gallops, or rubs. RESPIRATORY: Breath sounds equal bilaterally. No accessory muscle use. GASTROINTESTINAL: Abdomen soft, non-tender, nondistended. MUSCULOSKELETAL: No cyanosis. Left lower extremity 1+ edema as before. Erythema from ankle to mid calf. No broken skin. Right lower extremity without edema. BACK: Nontender without obvious deformity. No CVA tenderness. A/P Assessment and Plan 09/30. Discussed with nursing. Cultures positive for gram-positive cocci. Cultures are reordered. Cardiogram ordered. ID consult ordered. Continue IV antibiotics. Dillon wraps discussed //Severe Sepsis -With leukocytosis 16.6, tachycardia in the 90s, left lower extremity cellulitis. -Lactate 2.3, subsequently 3.3 -Start broad-spectrum antibiotics -Follow blood cultures, urine culture -Fluid bolus. Thiamine by mouth. Follow-up repeat lactate. = Improving. Leukocytosis stable however 16.0. Vital signs however improved. Repeat lactate has normalized. //Hypokalemia. Potassium 3.2. Potassium reported to cause leg cramps in the past. I suspect this is an association with needing potassium rather than causation. Replaced. Monitor. //gpc bacteremia. Blood cultures positive from admission. Recheck cultures. Echocardiogram ordered. Infectious disease consult ordered. //Hypertension. Blood pressure acceptable. Continue home losartan. Hold Hydrocort thiazide for now. Kidney function at baseline. = Blood pressure acceptable. Continue to monitor. //Chronic cirrhosis. -AST, ALC better than baseline. INR 1.1 on admission. Continue to monitor. //Left lower extremity venous stasis cellulitis -Acute on chronic. Initially started in December of this year. -With history of vein surgery in the past. -Elevation. Antibiotics. Dillon wraps. A performed limited bedside ultrasound which showed compressibility of popliteal vein on the left. Ultrasound ordered to rule out DVT. Discussed extensively with the patient. Continue to monitor. = Ultrasound negative for DVT. Incidental right-sided Law[place] cyst which was not even symptomatic. Left inguinal lymph node likely secondary to regional inflammatory response. //Possible acute UTI. -Urinalysis with white blood cell clumps. -Cultures gram-negative marian. Continue Levaquin. Follow-up cultures. //Obstructive sleep apnea. Continue CPAP. /DVT prophylaxis. Heparin. Discharge Planning Continues with treatment for sepsis. Gram-positive bacteremia. Pending echocardiogram, ID consult. Wagner Pisano MD Sep 30, 2017 16:33
[2017-09-30] MEDS ORDERED: POTASSIUM CHLORIDE 10 MEQ CONTROLLED RELEASE TAB PO ONE (17:00)
[2017-09-30 20:00] VITALS: BP 150/71; PULSE 60; RESP 20; TEMP 95.9; O2SAT 99
[2017-09-30] MEDS: LEVOFLOXACIN 750 MG TAB PO SCH (20:42)
[2017-10-01] VITALS: BP 140/73; PULSE 66; RESP 18; TEMP 96.6; O2SAT 98
[2017-10-01] MEDS: SODIUM CHLOR 0.9% 1000 ML INJ 1,000 ML IV SCH (04:20)
[2017-10-01] MEDS: VANCOMYCIN INJ 1,600 MG in SODIUM CHLORID 0.9% 500 ML INJ 500 ML IV SCH ×2 (04:20→21:30)
[2017-10-01 07:23] LABS: AUTOMATED NEUTROPHIL # 7.4 TH/MM3 (1.8-7.7); BASOPHIL # 0.1 TH/MM3 (0-0.2); BASOPHIL % 0.7 % (0.0-2.0); EOSINOPHIL # 0.2 TH/MM3 (0-0.4); EOSINOPHIL % 1.9 % (0.0-4.0); HEMATOCRIT 32.7 % (35.0-46.0); HEMO FLAGS DIFF FINAL; LYMPH % 19.1 % (9.0-44.0); LYMPHOCYTE # 1.9 TH/MM3 (1.0-4.8); MEAN CELL VOLUME 92.4 FL (80.0-100.0); MEAN CORPUSCULAR HEMOGLOBIN 31.3 PG (27.0-34.0); MEAN CORPUSCULAR HGB CONC 33.9 % (32.0-36.0); NEUT % 73.3 % (16.0-70.0); PLATELET COUNT 147 TH/MM3 (150-450); RED BLOOD COUNT 3.54 MIL/MM3 (4.00-5.30); RED CELL DISTRIBUTION WIDTH 12.8 % (11.6-17.2); WHITE BLOOD COUNT 10.1 TH/MM3 (4.0-11.0)
[2017-10-01 07:43] LABS: POTASSIUM 3.8 MEQ/L (3.5-5.1)
[2017-10-01 07:50] LABS: BICARBONATE 24.4 MEQ/L (21.0-32.0); MAGNESIUM 1.7 MG/DL (1.5-2.5)
[2017-10-01 08:00] VITALS: BP 155/81; PULSE 61; RESP 18; TEMP 96; O2SAT 95
[2017-10-01] MEDS: HEPARIN SODIUM - SQ 10,000 UNITS/ML VIAL SQ SCH ×2 (08:09→20:00)
--- NOTE | 2017-10-01 08:09 | PD.CONS ---
History of Present Illness Service Infectious Disease Consult Requested By Dr Pisano Reason for Consult Bacteremia, Cellulitis Primary Care Physician Rachel Etienne MD Diagnoses: (1) Bacteremia due to group B Streptococcus (2) Sepsis affecting skin History of Present Illness 72/F patient came in with a one week h/o left leg pain and swelling. Also on admission she had fever which she says she gets off and on - but not able to give me a time frame about that. She also c/o some difficulty urination but denies any dysuria or pain. Patient did not tolerate the florence bandage so took it off. Patient has multiple drug allergies. Review of Systems Constitutional: COMPLAINS OF: Fever, DENIES: Chills Endocrine: DENIES: Polydipsia, Polyuria Eyes: DENIES: Blurred vision, Diplopia, Eye pain Ears, nose, mouth, throat: DENIES: Hearing loss, Nasal discharge, Oral lesions Respiratory: DENIES: Cough, Sputum production, Shortness of breath Cardiovascular: DENIES: Chest pain, Palpitations Gastrointestinal: COMPLAINS OF: Diarrhea, DENIES: Abdominal pain, Nausea, Vomiting Genitourinary: COMPLAINS OF: Urinary frequency, DENIES: Hematuria, Dysuria Musculoskeletal: DENIES: Joint pain, Stiffness Integumentary: COMPLAINS OF: Abnormal pigmentation, DENIES: Rash Hematologic/lymphatic: DENIES: Bruising, Lymphadenopathy Neurologic: DENIES: Localized weakness, Speech Problems Psychiatric: DENIES: Confusion, Depression Past Family Social History Allergies: Coded Allergies: Sulfa (Sulfonamide Antibiotics) (Unverified Allergy, Severe, SWELLING, 09/29/17) codeine (Unverified Allergy, Severe, UNKNOWN REACTION, 09/29/17) cyclobenzaprine (Unverified Allergy, Severe, LEG CRAMPS, 09/29/17) duloxetine (Unverified Allergy, Severe, UNKNOWN REACTION, 09/29/17) lisinopril (Unverified Allergy, Severe, COUGH, 09/29/17) lovastatin (Unverified Allergy, Severe, LEG CRAMPS, 09/29/17) penicillin G (Unverified Allergy, Severe, UNKNOWN REACTION, 09/29/17) potassium (Unverified Allergy, Severe, LEG CRAMPS, 09/29/17) potassium bicarbonate (Unverified Allergy, Severe, LEG CRAMPS, 09/29/17) potassium chloride (Unverified Allergy, Severe, LEG CRAMPS, 09/29/17) potassium iodide (Unverified Allergy, Severe, LEG CRAMPS, 09/29/17) potassium phosphate (Unverified Allergy, Severe, LEG CRAMPS, 09/29/17) sitagliptin (Unverified Allergy, Severe, UNKNOWN REACTION, 09/29/17) sulfamethoxazole (Unverified Allergy, Severe, UNKNOWN REACTION, 09/29/17) telmisartan (Unverified Allergy, Severe, SWELLING, 09/29/17) trimethoprim (Unverified Allergy, Severe, UNKNOWN REACTION, 09/29/17) *MDRO Multi-Drug Resistant Organism (Verified Adverse Reaction, Unknown, 09/29/17) 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 Past Medical History Obstructive sleep apnea Hypertension Chronic venous insufficiency Neuropathy Hyperlipidemia Patient reports history of bulging disks in her neck Acute Hepatitis B last year treated with Viread Pneumonia at age 12 Past Surgical History Urethral repair, bladder repair Hysterectomy Cataract surgery Appendectomy Active Ordered Medications IV Vancomycin and Levofloxacin Family History Non significant Social History No h/o smoking or alcoholism Retired. Physical Exam Vital Signs Vital Signs Date Time Temp Pulse Resp B/P (MAP) Pulse Ox O2 Delivery O2 Flow Rate FiO2 10/01/17 00:00 96.6 66 18 140/73 (95) 98 09/30/17 20:00 95.9 60 20 150/71 (97) 99 09/30/17 16:00 97.9 81 17 122/71 (88) 94 09/30/17 08:00 98.0 77 16 118/62 (80) 95 Physical Exam GENERAL: This is an obese patient, in no apparent distress. SKIN: Left leg erythematous mid calf below. HEAD: Atraumatic. Normocephalic. No temporal or scalp tenderness. EYES: Pupils equal round and reactive. Extraocular motions intact. No scleral icterus. No injection or drainage. ENT: Nose without bleeding, purulent drainage or septal hematoma. Throat without erythema, tonsillar hypertrophy or exudate. Uvula midline. Airway patent. NECK: Trachea midline. No JVD or lymphadenopathy. Supple, nontender, no meningeal signs. CARDIOVASCULAR: Regular rate and rhythm with soft systolic murmur murmurs, gallops, or rubs. RESPIRATORY: Clear to auscultation. Breath sounds equal bilaterally. No wheezes , rales, or rhonchi. GASTROINTESTINAL: Abdomen soft, non-tender, nondistended. No hepato-splenomegaly , or palpable masses. No guarding. MUSCULOSKELETAL: Both legs with prominent veins. Left leg cellulitis NEUROLOGICAL: Awake and alert. Cranial nerves II through XII intact. Motor and sensory grossly within normal limits. Five out of 5 muscle strength in all muscle groups. Normal speech. Laboratory Laboratory Tests Test 09/30/17 10:05 10/01/17 06:06 White Blood Count 16.0 10.1 Red Blood Count 3.62 3.54 Hemoglobin 11.5 11.1 Hematocrit 33.0 32.7 Mean Corpuscular Volume 91.2 92.4 Mean Corpuscular Hemoglobin 31.7 31.3 Mean Corpuscular Hemoglobin Concent 34.7 33.9 Red Cell Distribution Width 12.3 12.8 Platelet Count 147 147 Mean Platelet Volume 7.8 8.3 Neutrophils (%) (Auto) 87.9 73.3 Lymphocytes (%) (Auto) 7.8 19.1 Monocytes (%) (Auto) 3.2 5.0 Eosinophils (%) (Auto) 0.1 1.9 Basophils (%) (Auto) 1.0 0.7 Neutrophils # (Auto) 14.1 7.4 Lymphocytes # (Auto) 1.2 1.9 Monocytes # (Auto) 0.5 0.5 Eosinophils # (Auto) 0.0 0.2 Basophils # (Auto) 0.2 0.1 CBC Comment DIFF FINAL DIFF FINAL Differential Comment Blood Urea Nitrogen 14 13 Creatinine 0.78 0.58 Random Glucose 170 104 Total Protein 7.1 Albumin 2.9 2.8 Calcium Level 8.4 8.3 Alkaline Phosphatase 73 Aspartate Amino Transf (AST/SGOT) 34 Alanine Aminotransferase (ALT/SGPT) 29 Total Bilirubin 0.9 Sodium Level 135 139 Potassium Level 3.2 3.8 Chloride Level 103 108 Carbon Dioxide Level 23.7 24.4 Anion Gap 8 7 Estimat Glomerular Filtration Rate 72 102 Lactic Acid Level 1.2 Magnesium Level 1.5 1.7 Phosphorus Level 2.3 Date/Time Source Procedure Growth Status 09/30/17 18:05 Blood Peripheral Aerobic Blood Culture Pending Received 09/30/17 18:05 Blood Peripheral Anaerobic Blood Culture Pending Received 09/29/17 17:30 Urine Clean Catch Urine Culture - Preliminary Gram Negative Arthur Resulted Result Diagram: 10/01/1760510/01/17 0606 Assessment and Plan Problem List: (1) Sepsis affecting skin ICD Codes: A41.9 - Sepsis, unspecified organism Status: Acute Plan: Follow blood cultures Repeat blood cultures to check for clearing IV Vancomycin - pharmacy to dose Change Levofloxacin to 500 mg po daily Check Echocardiogram (2) Bacteremia due to group B Streptococcus ICD Codes: R78.81 - Bacteremia Status: Acute (3) Left leg cellulitis ICD Codes: L03.116 - Cellulitis of left lower limb Status: Acute (4) UTI (urinary tract infection) ICD Codes: N39.0 - Urinary tract infection, site not specified Status: Acute Plan: Follow Urine culture Problem Qualifiers (1) UTI (urinary tract infection): Eva Kemp MD Oct 01, 2017 08:09
[2017-10-01] MEDS: INSULIN ASPART SUPPLEMENTAL SCALE SQ SCH ×4 (08:10→21:00)
[2017-10-01] MEDS: SODIUM CHLORIDE 0.9% FLUSH 10 ML FLUSH IV FLUSH SCH ×2 (08:10→21:31)
[2017-10-01] MEDS: THIAMINE HCL 100 MG TAB PO SCH (08:12)
[2017-10-01] MEDS: LOSARTAN 50 MG TAB PO SCH (08:12)
[2017-10-01] MEDS: LACTOBACILLUS ACIDOPHILUS TAB PO SCH ×2 (08:12→21:30)
[2017-10-01 12:00] VITALS: BP 142/79; PULSE 58; RESP 18; TEMP 95.9; O2SAT 99
--- NOTE | 2017-10-01 13:45 | HHI.PR ---
Subjective Remarks Patient seen and examined today for follow-up on sepsis, cellulitis, urinary tract infection, positive blood cultures. Patient is doing quite well. She is standing up and walking around in the room. Patient denies any new complaints at this time. Does feel better today. Objective Vitals Vital Signs Date Time Temp Pulse Resp B/P (MAP) Pulse Ox O2 Delivery O2 Flow Rate FiO2 10/01/17 12:00 95.9 58 18 142/79 (100) 99 10/01/17 08:00 96.0 61 18 155/81 (105) 95 10/01/17 00:00 96.6 66 18 140/73 (95) 98 09/30/17 20:00 95.9 60 20 150/71 (97) 99 09/30/17 16:00 97.9 81 17 122/71 (88) 94 I/O 09/30/17 09/30/17 09/30/17 10/01/17 10/01/17 10/01/17 07:00 15:00 23:00 07:00 15:00 23:00 Intake Total 1720 ml 262.5 ml 340 ml Balance 1720 ml 262.5 ml 340 ml Intake Oral 720 ml 340 ml IV Total 1000 ml 262.5 ml # Voids 2 2 # Bowel Movements 0 4 Result Diagram: 10/01/1760510/01/17605 Objective Remarks GENERAL: Well-developed, well-nourished, in no acute distress. alert and orientated HEENT: Head is normocephalic without any lesions or masses noted. Facial features are symmetric. Eyes: Extraocular muscles are intact. Conjunctivae were clear. NECK: Supple without any masses. Trachea midline no deviation. No JVD, CARDIAC: Regular rhythm, regular rate. S1/S2 are heard. No murmurs gallops or rubs. LUNGS: Clear to auscultation bilaterally. No wheeze, rhonchi or rales. No use of accessory muscles on inspiration or expiration. ABDOMEN: Soft, nontender. Nondistended. Bowel sounds heard in all 4 quadrants. No organomegaly or masses. Negative rebound, negative guarding EXTREMITIES: No edema, pulses are equal bilaterally. No cyanosis or clubbing. Left lower extremity is wrapped with Dillon bandage NEUROLOGY: Mood and affect appear appropriate. Cranial nerves II through XII grossly intact. Moving all extremities, speech is clear Urinary Catheter: No Vascular Central Line Catheter: No A/P Assessment and Plan Severe Sepsis, resolved With leukocytosis 16.6, tachycardia in the 90s, left lower extremity cellulitis on presentation. Lactic acid level has returned to normal Patient continued on vancomycin, Levaquin Blood cultures now with gram-positive cocci, urine culture with Escherichia coli Bacteremia gram-positive cocci Likely secondary to lower extremity cellulitis Awaiting echocardiogram Repeat blood cultures are negative for 1 day Continue vancomycin Infectious disease consulted Urinary tract infection Urine culture with Escherichia coli Patient continued on Levaquin by mouth Recommended probiotic Left lower extremity venous stasis cellulitis Acute on chronic. Initially started in December of this year.With history of vein surgery in the past. Continue Dillon wrap, elevation, antibiotics Ultrasound lower extremity performed without any signs of DVT Hypokalemia. Continue monitor and replace as needed Hypertension. Continue home medications Monitor blood pressure and adjust medications accordingly Chronic cirrhosis. Liver enzymes are much better than baseline Coagulation factors are normal Obstructive sleep apnea. Continue CPAP. DVT prophylaxis. Subcutaneous Heparin. Discharge Planning Discharge planning 24-48 hours depending on culture reports Lowell Ashley Oct 01, 2017 13:45
[2017-10-01 16:00] VITALS: BP 162/74; PULSE 57; RESP 16; TEMP 96; O2SAT 96
--- NOTE | 2017-10-01 17:11 | ECHRPT ---
Indication: SEPSIS, ?ENDOCARDITIS CONCLUSIONS Normal left ventricular size. Mild concentric left ventricular hypertrophy. The left ventricular systolic function is normal with an estimated ejection fraction in the range of 55-60%. The left atrial size is mildly dilated. Trace mitral valve regurgitation. There is mild tricuspid valve regurgitation. The pulmonary valve is not well visualized. BP: 140 / 73 HR: Rhythm: Sinus MEASUREMENTS (Male / Female) Normal Values Technical Quality:Fair 2D ECHO LV Diastolic Diameter PLAX 4.9 cm 4.2 - 5.9 / 3.9 - 5.3 cm LV Systolic Diameter PLAX 3.7 cm IVS Diastolic Thickness 1.1 cm 0.6 - 1.0 / 0.6 - 0.9 cm LVPW Diastolic Thickness 1.1 cm 0.6 - 1.0 / 0.6 - 0.9 cm LV Relative Wall Thickness 0.4 LVOT Diameter 2.2 cm Aortic Root Diameter 2.8 cm LA Systolic Diameter LX 3.8 cm 3.0 - 4.0 / 2.7 - 3.8 cm M-MODE AV Cusp Separation MM 1.8 cm DOPPLER AV Peak Velocity 164.0 cm/s AV Peak Gradient 10.8 mmHg AV Mean Gradient 5.0 mmHg AV Velocity Time Integral 39.8 cm LVOT Peak Velocity 114.0 cm/s LVOT Peak Gradient 5.2 mmHg LVOT Velocity Time Integral 27.5 cm AV Area Cont Eq vti 2.6 cm AV Area Cont Eq pk 2.6 cm Mitral E Point Velocity 69.1 cm/s Mitral A Point Velocity 78.5 cm/s Mitral E to A Ratio 0.9 LV E' Lateral Velocity 12.6 cm/s Mitral E to LV E' Lateral Ratio 5.5 LV E' Septal Velocity 7.7 cm/s Mitral E to LV E' Septal Ratio 9.0 TR Peak Velocity 254.0 cm/s TR Peak Gradient 25.8 mmHg Right Atrial Pressure 10.0 mmHg Pulmonary Artery Systolic Pressu 35.8 mmHg Right Ventricular Systolic Press 35.8 mmHg PV Peak Velocity 64.7 cm/s PV Peak Gradient 1.7 mmHg FINDINGS LEFT VENTRICLE Normal left ventricular size. Mild concentric left ventricular hypertrophy. The left ventricular systolic function is normal with an estimated ejection fraction in the range of 55-60%. RIGHT VENTRICLE Normal right ventricular size and systolic function. LEFT ATRIUM The left atrial size is mildly dilated. RIGHT ATRIUM The right atrial size is normal. ATRIAL SEPTUM Normal atrial septal thickness without atrial level shunting by limited color doppler interrogation. AORTA The aortic root and proximal ascending aorta are normal in size on limited imaging. MITRAL VALVE Trace mitral valve regurgitation. AORTIC VALVE Trileaflet aortic valve. No aortic valve stenosis or regurgitation. TRICUSPID VALVE There is mild tricuspid valve regurgitation. PULMONARY VALVE The pulmonary valve is not well visualized. VESSELS The inferior vena cava is normal in size. PERICARDIUM No pericardial effusion. Maximiliano Cardona MD, FACC (Electronically Signed) Final Date:01 October 2017 17:10
[2017-10-01 19:56] VITALS: O2SAT 98
[2017-10-01 20:00] VITALS: BP 178/74; PULSE 70; RESP 20; TEMP 96.7; O2SAT 96
[2017-10-01] MEDS ORDERED: LEVOFLOXACIN 750 MG TAB PO SCH (20:00)
[2017-10-01] MEDS ORDERED: LEVOFLOXACIN 500 MG TAB PO SCH (20:45)
[2017-10-01] MEDS ORDERED: PHARMACY ORDERED LAB ONE (21:45)
[2017-10-02] VITALS: BP 125/59; PULSE 61; RESP 20; TEMP 97; O2SAT 97
[2017-10-02 04:00] VITALS: BP 143/67; PULSE 54; RESP 20; TEMP 97.2; O2SAT 98
[2017-10-02 08:00] VITALS: BP 172/80; PULSE 56; RESP 18; TEMP 97.2; O2SAT 97
[2017-10-02] MEDS: HEPARIN SODIUM - SQ 10,000 UNITS/ML VIAL SQ SCH (08:00)
[2017-10-02] MEDS: INSULIN ASPART SUPPLEMENTAL SCALE SQ SCH ×3 (08:00→16:57)
[2017-10-02] MEDS: LACTOBACILLUS ACIDOPHILUS TAB PO SCH (08:14)
[2017-10-02] MEDS: THIAMINE HCL 100 MG TAB PO SCH (08:14)
[2017-10-02] MEDS: SODIUM CHLORIDE 0.9% FLUSH 10 ML FLUSH IV FLUSH SCH (08:14)
[2017-10-02] MEDS: LOSARTAN 50 MG TAB PO SCH (08:14)
--- NOTE | 2017-10-02 11:06 | HHI.PR ---
Subjective Remarks Patient seen and examined today for follow-up on bacteremia, cellulitis, urinary tract infection. Patient is sitting in chair. Denies any new complaints. Still awaiting cultures for final antibiotic determination and treatment Objective Vitals Vital Signs Date Time Temp Pulse Resp B/P (MAP) Pulse Ox O2 Delivery O2 Flow Rate FiO2 10/02/17 08:00 97.2 56 18 172/80 (110) 97 10/02/17 04:00 97.2 54 20 143/67 (92) 98 10/02/17 00:00 97.0 61 20 125/59 (81) 97 10/01/17 20:00 96.7 70 20 178/74 (108) 96 10/01/17 19:56 98 21 10/01/17 16:00 96.0 57 16 162/74 (103) 96 10/01/17 12:00 95.9 58 18 142/79 (100) 99 I/O 10/01/17 10/01/17 10/01/17 10/02/17 10/02/17 10/02/17 07:00 15:00 23:00 07:00 15:00 23:00 Intake Total 340 ml 588 ml 960 ml 240 ml Balance 340 ml 588 ml 960 ml 240 ml Intake Oral 340 ml 960 ml 240 ml IV Total 588 ml # Voids 2 4 1 # Bowel Movements 4 2 Result Diagram: 10/01/1760510/01/17 06 Objective Remarks GENERAL: Well-developed, well-nourished, in no acute distress. alert and orientated HEENT: Head is normocephalic without any lesions or masses noted. Facial features are symmetric. Eyes: Extraocular muscles are intact. Conjunctivae were clear. NECK: Supple without any masses. Trachea midline no deviation. No JVD, CARDIAC: Regular rhythm, regular rate. S1/S2 are heard. No murmurs gallops or rubs. LUNGS: Clear to auscultation bilaterally. No wheeze, rhonchi or rales. No use of accessory muscles on inspiration or expiration. ABDOMEN: Soft, nontender. Nondistended. Bowel sounds heard in all 4 quadrants. No organomegaly or masses. Negative rebound, negative guarding EXTREMITIES: No edema, pulses are equal bilaterally. No cyanosis or clubbing. Left lower extremity is wrapped with Dillon bandage NEUROLOGY: Mood and affect appear appropriate. Cranial nerves II through XII grossly intact. Moving all extremities, speech is clear Urinary Catheter: No Vascular Central Line Catheter: No A/P Assessment and Plan Severe Sepsis, resolved With leukocytosis 16.6, tachycardia in the 90s, left lower extremity cellulitis on presentation. Lactic acid level has returned to normal Patient continued on vancomycin, Levaquin Blood cultures now with gram-positive cocci, urine culture with Escherichia coli Bacteremia gram-positive cocci Original blood cultures with group B beta strep Likely secondary to lower extremity cellulitis Echocardiogram does not indicate any vegetation. Ejection fraction 55-60%. Repeat blood cultures are negative for 1 day Currently on vancomycin until final cultures and recommendations per ID Infectious disease consulted Urinary tract infection Urine culture with Escherichia coli Patient currently on Levaquin by mouth Recommended probiotic Left lower extremity venous stasis cellulitis Acute on chronic. Initially started in December of this year.With history of vein surgery in the past. Continue Dillon wrap, elevation, antibiotics Ultrasound lower extremity performed without any signs of DVT Hypokalemia. Continue monitor and replace as needed Hypertension. Continue home medications Monitor blood pressure and adjust medications accordingly Chronic cirrhosis. Liver enzymes are much better than baseline Coagulation factors are normal Obstructive sleep apnea. Continue CPAP. DVT prophylaxis. Subcutaneous Heparin. Discharge Planning Discharge planning 24-48 hours depending on culture reports and recommendations from infectious disease Lowell Ashley Oct 02, 2017 11:06
[2017-10-02 12:00] VITALS: BP 159/74; PULSE 58; RESP 18; TEMP 97.3; O2SAT 98
[2017-10-02] MEDS ORDERED: LEVA500T33 PO (15:32)
[2017-10-02] MEDS ORDERED: LACT PO (15:32)
--- NOTE | 2017-10-02 15:33 | HHI.DCPOC ---
Discharge Care Plan Diagnosis: (1) Bacteremia due to group B Streptococcus (2) Left leg cellulitis (3) UTI (urinary tract infection) Goals to Promote Your Health * To prevent worsening of your condition and complications * To maintain your health at the optimal level Directions to Meet Your Goals Take your medications as prescribed Follow your dietary instruction Follow activity as directed Keep your appointments as scheduled Take your immunizations and boosters as scheduled If your symptoms worsen call your PCP, if no PCP go to Urgent Care Center or Emergency Room Smoking is Dangerous to Your Health. Avoid second hand smoke Call the 24-hour hour crisis hotline for domestic abuse at Lowell Ashley Oct 02, 2017 15:33
--- NOTE | 2017-10-02 15:42 | HHI.DS ---
Discharge Summary Admission Date Sep 29, 2017 at 17:39 Discharge Date: Oct 02, 2017 Admitting Diagnosis Sepsis 2/2 Cellulitis LLE (1) Sepsis affecting skin ICD Code: A41.9 - Sepsis, unspecified organism Status: Acute (2) Bacteremia due to group B Streptococcus ICD Code: R78.81 - Bacteremia Status: Acute (3) Left leg cellulitis ICD Code: L03.116 - Cellulitis of left lower limb Status: Acute (4) UTI (urinary tract infection) ICD Code: N39.0 - Urinary tract infection, site not specified Status: Acute (5) Physical deconditioning ICD Code: R53.81 - Other malaise Procedures Echocardiogram showed ejection fraction 55-60%, mild left ventricular hypertrophy, left atrial size mildly dilated, trace of mitral valve regurgitation, mild tricuspid valve regurgitation. Brief History - From Admission 72-year-old female with history of hypertension, venous insufficiency, obstructive sleep apnea who presents with 1 week of worsening left lower extremity pain in the ankle which she described as sharp, intermittent and shooting up her left leg. She also reports worsening redness of the area over the past week. She reports chronic unmeasured fevers since December of this year. Denies any nausea or vomiting. Denies any chest pain or shortness of breath. Patient with very tangential conversation, however alert and oriented 4. Daughter at bedside assists with history. Patient does have a history of vein surgery to bilateral legs with what appears to be chronic venous insufficiency worse on the left. She says she is been told to elevate them, where compression hose, however compliance appears to have been an issue. She reports having an ultrasound to rule out DVT several weeks ago. CBC/BMP: 10/01/17 0606 10/01/17 0606 Significant Findings Laboratory Tests Test 09/29/17 17:30 09/29/17 18:28 09/29/17 19:28 09/30/17 10:05 Urine Turbidity CLOUDY (CLEAR) Urine Occult Blood TRACE (NEG) Urine Nitrite POS (NEG) Urine Leukocyte Esterase TRACE (NEG) Urine WBC 6-8 /hpf (0-5) Urine WBC Clumps FEW (NONE) Urine Bacteria MANY /hpf (NONE) Lactic Acid Level 3.3 mmol/L (0.4-2.0) Prothrombin Time 12.0 SEC (9.8-11.6) White Blood Count 16.0 TH/MM3 (4.0-11.0) Red Blood Count 3.62 MIL/MM3 (4.00-5.30) Hemoglobin 11.5 GM/DL (11.6-15.3) Hematocrit 33.0 % (35.0-46.0) Platelet Count 147 TH/MM3 (150-450) Neutrophils (%) (Auto) 87.9 % (16.0-70.0) Lymphocytes (%) (Auto) 7.8 % (9.0-44.0) Neutrophils # (Auto) 14.1 TH/MM3 (1.8-7.7) Random Glucose 170 MG/DL (74-106) Albumin 2.9 GM/DL (3.4-5.0) Calcium Level 8.4 MG/DL (8.5-10.1) Sodium Level 135 MEQ/L (136-145) Potassium Level 3.2 MEQ/L (3.5-5.1) Estimat Glomerular Filtration Rate 72 ML/MIN (>89) Test 10/01/17 06:06 Red Blood Count 3.54 MIL/MM3 (4.00-5.30) Hemoglobin 11.1 GM/DL (11.6-15.3) Hematocrit 32.7 % (35.0-46.0) Platelet Count 147 TH/MM3 (150-450) Neutrophils (%) (Auto) 73.3 % (16.0-70.0) Albumin 2.8 GM/DL (3.4-5.0) Calcium Level 8.3 MG/DL (8.5-10.1) Phosphorus Level 2.3 MG/DL (2.5-4.9) Chloride Level 108 MEQ/L (98-107) Imaging Last Impressions Lower Extremity Ultrasound 09/30/17 0000 Signed Impressions: Service Date/Time: Saturday, September 30, 2017 07:48 - CONCLUSION: 1. No DVT is identified within either lower extremity. 2. Incidental right Lawton's cyst is identified measuring 2.7 cm. 3. There is a single mildly enlarged left inguinal lymph node. Fernando Hannon MD Chest X-Ray 09/29/17 0927 Signed Impressions: Service Date/Time: September 15:58 - CONCLUSION: Underinflated examination. No acute cardiopulmonary abnormality is identified. Fernando Hannon MD PE at Discharge GENERAL: Well-developed, well-nourished, in no acute distress. alert and orientated HEENT: Head is normocephalic without any lesions or masses noted. Facial features are symmetric. Eyes: Extraocular muscles are intact. Conjunctivae were clear. NECK: Supple without any masses. Trachea midline no deviation. No JVD, CARDIAC: Regular rhythm, regular rate. S1/S2 are heard. No murmurs gallops or rubs. LUNGS: Clear to auscultation bilaterally. No wheeze, rhonchi or rales. No use of accessory muscles on inspiration or expiration. ABDOMEN: Soft, nontender. Nondistended. Bowel sounds heard in all 4 quadrants. No organomegaly or masses. Negative rebound, negative guarding EXTREMITIES: No edema, pulses are equal bilaterally. No cyanosis or clubbing. Left lower extremity is wrapped with Dillon bandage NEUROLOGY: Mood and affect appear appropriate. Cranial nerves II through XII grossly intact. Moving all extremities, speech is clear Hospital Course 72-year-old female who originally presented to hospital on 09/29/17 because of one week history of left lower extremity pain, swelling, erythema. Patient had workup done in the emergency department and found to have sepsis with leukocytosis 16.6, tachycardia, lower extremity cellulitis. Further workup showed urinary tract infection. Patient was admitted the hospital with broad-spectrum antibiotics to include vancomycin and Levaquin. Cultures were taken and patient subsequently had positive blood cultures. Patient clinically was improving on a daily basis. She is ambulating in the room without any complications. She denied any problems on a daily basis. Infectious disease was consulted secondary to the gram-positive bacteremia. Follow-up cultures were taken. Patient was continued on vancomycin, Levaquin. Urine culture did indicate Escherichia coli which is sensitive to Levaquin. Blood cultures did show group B beta strep which is sensitive to Levaquin. Follow cultures are negative for 48 hours. Case was discussed with infectious disease who recommended that the patient can be discharged home on Levaquin by mouth for total of 10 days. Patient is clinically improving this time. Plan discharge accordingly. Physical therapy evaluated patient and recommended patient could use a walker. Case management was consulted and ordered walker. However patient states that she does not want one, she will use her daughter's that she has at her house. Will discharge patient home in stable condition. Pt Condition on Discharge: Stable Discharge Disposition: Discharge Home Discharge Time: > 30 minutes Discharge Instructions DIET: Follow Instructions for: Heart Healthy Diet Activities you can perform: Regular-No Restrictions Activities to Avoid: Driving for 24 hrs Follow up Referrals: PCP Follow-up - 1 Week New Medications: Walker with Front Wheels (Walker with Front Wheels) 1 Mis Mis EA .ROUTE DIRECTED, #1 0 Refills Lactobacillus Acidophilus (Acidophilus/l-Sporogenes) 35 Million Cell-25 Million Cell Tab 1 TAB PO Q12HR for GI protection for 10 Days, TAB Levofloxacin (Levaquin) 500 Mg Tablet 500 MG PO Q24H for Infection for 10 Days, #10 TAB Continued Medications: Hydrochlorothiazide (Hydrochlorothiazide) 25 Mg Tab 25 MG PO DAILY for blood pressure, #30 TAB 0 Refills Losartan (Losartan) 100 Mg Tab 100 MG PO DAILY for Blood Pressure Management, #30 TAB 0 Refills Lowell Ashley Oct 02, 2017 15:42
[2017-10-02] MEDS ORDERED: VANCOMYCIN TROUGH ONE (15:45)
[2017-10-02] MEDS: VANCOMYCIN INJ 1,600 MG in SODIUM CHLORID 0.9% 500 ML INJ 500 ML IV SCH (16:00)
== END 2017-10-02 17:25 | disposition home or self-care (01) | DRG 872 ==
LOC: PHED 15:07 → PHEDA 17:08 → OBSVTOIN 17:39 → PH3A 21:05
PROVIDERS: ADMIT Hospitalist; ATTEND Hospitalist
DX: A40.1 Sepsis due to streptococcus, group B (principal); R65.20 Severe sepsis without septic shock; K74.60 Unspecified cirrhosis of liver; N39.0 Urinary tract infection, site not specified; L03.116 Cellulitis of left lower limb; I10 Essential (primary) hypertension; I87.2 Venous insufficiency (chronic) (peripheral); G47.33 Obstructive sleep apnea (adult) (pediatric); B96.20 Unspecified Escherichia coli [E. coli] as the cause of diseases classified elsewhere; E78.5 Hyperlipidemia, unspecified; I87.8 Other specified disorders of veins; E87.6 Hypokalemia; Z88.1 Allergy status to other antibiotic agents; Z88.5 Allergy status to narcotic agent; Z88.0 Allergy status to penicillin; Z88.8 Allergy status to other drugs, medicaments and biological substances; Z88.2 Allergy status to sulfonamides
CPT/HCPCS: 71010; 80053; 80069; 81001; 82948; 83036; 83605; 83735; 85025; 85610; 87040; 87077; 87086; 87186; 87205; 93306; 93970; 96365; J1644; J3370; J7030; J7040; J7050

== ENCOUNTER 2018-01-14 16:41 | Emergency (ER) | payer MEDICARE, OTHER ==
[~2018-01-14 16:41] MED LIST changes: -CLIN300C5 PO; -DOXY100C PO; +LACT PO; +LEVA500T33 PO; +WALKER WHEELS/F1 MIS
[2018-01-14 16:47] VITALS: BP 140/70; PULSE 86; RESP 16; TEMP 98.3; O2SAT 95
[2018-01-14] MEDS ORDERED: LOSA100T2 PO (17:06)
[2018-01-14] MEDS ORDERED: ALEV220T14 PO (17:06)
[2018-01-14] MEDS ORDERED: DOXY100C PO (18:51)
[2018-01-14] MEDS ORDERED: CLIN150C14 PO (18:51)
--- NOTE | 2018-01-14 18:52 | PD ---
HPI Chief Complaint: Skin Problem Time Seen by Provider: 18:45 Travel History International Travel<30 days: No Contact w/Intl Traveler<30days: No Traveled to known affect area: No History of Present Illness HPI Patient presents with recurrence of left lower extremity cellulitis. States it is very mild and its progress. Denies nausea vomiting diarrhea or fever. Denies hypertension. Trying to treat it early. Responded well in the past clindamycin and doxycycline. PFSH Past Medical History Arthritis: Yes Asthma: No Anxiety: No Depression: No Heart Rhythm Problems: No Cancer: No Cardiovascular Problems: Yes (htn) High Cholesterol: Yes Chest Pain: No Congestive Heart Failure: No COPD: No Diabetes: Yes (hx of) Diminished Hearing: No Endocrine: Yes Gastrointestinal Disorders: Yes GERD: No Genitourinary: Yes (INTERMITTENT INCONTINENT) Hiatal Hernia: No Hypertension: Yes Immune Disorder: No Kidney Stones: No Musculoskeletal: Yes (BONE SPUR ON SPINE) Neurologic: Yes (NEUROPATHY) Psychiatric: No Reproductive: No Respiratory: Yes (SLEEP APNEA) Integumentary: Yes (ROSACEA) Immunizations Current: Yes Renal Failure: No Sleep Apnea: Yes (CPAP AT NIGHT) Thyroid Disease: Yes Ulcer: Yes Tetanus Vaccination: < 5 Years Influenza Vaccination: No ?: Not Menopausal: Yes Past Surgical History Abdominal Surgery: Yes (EXP LAP) AICD: No Appendectomy: Yes Eye Surgery: Yes (RIGHT CATARACT 12/13/13) Genitourinary Surgery: Yes (URETHRAL REPAIR,BLADDER REPAIR) Gynecologic Surgery: Yes (total hysterectomy) Hysterectomy: Yes Joint Replacement: No Pacemaker: No Other Surgery: Yes (BLADDER REPAIR, thumb surgery) Social History Alcohol Use: No Tobacco Use: No Substance Use: No Allergies-Medications (Allergen,Severity, Reaction): Coded Allergies: Sulfa (Sulfonamide Antibiotics) (Unverified Allergy, Severe, SWELLING, ) codeine (Unverified Allergy, Severe, UNKNOWN REACTION, 01/14/18) cyclobenzaprine (Unverified Allergy, Severe, LEG CRAMPS, 01/14/18) duloxetine (Unverified Allergy, Severe, UNKNOWN REACTION, 01/14/18) lisinopril (Unverified Allergy, Severe, COUGH, 01/14/18) lovastatin (Unverified Allergy, Severe, LEG CRAMPS, 01/14/18) penicillin G (Unverified Allergy, Severe, UNKNOWN REACTION, 01/14/18) potassium (Unverified Allergy, Severe, LEG CRAMPS, 01/14/18) potassium bicarbonate (Unverified Allergy, Severe, LEG CRAMPS, 01/14/18) potassium chloride (Unverified Allergy, Severe, LEG CRAMPS, 01/14/18) potassium iodide (Unverified Allergy, Severe, LEG CRAMPS, 01/14/18) potassium phosphate (Unverified Allergy, Severe, LEG CRAMPS, 01/14/18) sitagliptin (Unverified Allergy, Severe, UNKNOWN REACTION, 01/14/18) sulfamethoxazole (Unverified Allergy, Severe, UNKNOWN REACTION, 01/14/18) telmisartan (Unverified Allergy, Severe, SWELLING, 01/14/18) trimethoprim (Unverified Allergy, Severe, UNKNOWN REACTION, 01/14/18) *MDRO Multi-Drug Resistant Organism (Verified Adverse Reaction, Unknown, ) 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 Reported Meds & Prescriptions Reported Meds & Active Scripts Active Reported Aleve Arthritis (Naproxen Sodium) 220 Mg Tab 220 Mg PO BID Losartan-Hydrochlorothiazide 100-25 Mg Tab 1 Tab PO DAILY Review of Systems General / Constitutional: No: Fever Eyes: No: Visual changes HENT: No: Headaches Cardiovascular: No: Chest Pain or Discomfort Respiratory: No: Shortness of Breath Gastrointestinal: No: Abdominal Pain Genitourinary: No: Dysuria Musculoskeletal: No: Pain Skin: No Rash Neurologic: No: Weakness Psychiatric: No: Depression Endocrine: No: Polydipsia Hematologic/Lymphatic: No: Easy Bruising Physical Exam Narrative GENERAL: Well-nourished, well-developed patient. SKIN: Focused skin assessment warm/dry. HEAD: Normocephalic. EYES: No scleral icterus. No injection or drainage. NECK: Supple, trachea midline. No JVD or lymphadenopathy. CARDIOVASCULAR: Regular rate and rhythm without murmurs, gallops, or rubs. RESPIRATORY: Breath sounds equal bilaterally. No accessory muscle use. GASTROINTESTINAL: Abdomen soft, non-tender, nondistended. MUSCULOSKELETAL: No cyanosis, or edema. BACK: Nontender without obvious deformity. No CVA tenderness. Mild erythema to the distal lower leg from mid shaft ankle no drainage or discharge Data Data Last Documented VS Vital Signs Date Time Temp Pulse Resp B/P (MAP) Pulse Ox O2 Delivery O2 Flow Rate FiO2 01/14/18 16:47 98.3 86 16 140/70 (93) 95 MDM Medical Decision Making Medical Screen Exam Complete: Yes Emergency Medical Condition: Yes Differential Diagnosis Cellulitis, sepsis, venous stasis changes Narrative Course Assessment and plan discussed with patient. Patient is requesting to avoid significant workup. Requesting clindamycin and doxycycline so that she can nip this in the bud. I think this is reasonable since she is otherwise asymptomatic. She will follow-up with PCP Diagnosis Primary Impression: Lower extremity cellulitis Qualified Codes: L03.116 - Cellulitis of left lower limb Patient Instructions: General Instructions Additional Instructions: Encouraged antibacterial soap and water 2 times per day, antibiotic as prescribed, Motrin or Tylenol for discomfort, follow-up with PCP, return to emergency room with any onset of new symptoms. Med/Other Pt SpecificInfo: Prescription(s) given Scripts Doxycycline Hyclate (Doxycycline Hyclate) 100 Mg Cap 100 MG PO BID for Infection, #20 CAP 0 Refills Prov: Jesse Lao MD 01/14/18 Clindamycin (Clindamycin) 150 Mg Cap 300 MG PO BID for Infection for 10 Days, #40 CAP 0 Refills Prov: Jesse Lao MD 01/14/18 Disposition: 01 DISCHARGE HOME Condition: Good Jesse Lao MD Jan 14, 2018 18:52
[2018-01-14 19:10] VITALS: BP 145/75; TEMP 98.2
== END 2018-01-14 19:16 | disposition home or self-care (01) ==
LOC: PHED 16:41
DX: L03.116 Cellulitis of left lower limb (principal); I10 Essential (primary) hypertension; E78.00 Pure hypercholesterolemia, unspecified; E11.9 Type 2 diabetes mellitus without complications; Z88.2 Allergy status to sulfonamides; Z88.5 Allergy status to narcotic agent; Z88.0 Allergy status to penicillin; Z79.899 Other long term (current) drug therapy
CPT/HCPCS: 99283

== ENCOUNTER 2018-03-30 06:19 | Observation (INO) | payer MEDICARE, OTHER ==
[~2018-03-30] VITALS: Ht 165.1 cm; Wt 88.1 kg
[~2018-03-30 06:19] MED LIST changes: +BIOT10TA PO; -LACT PO; -LEVA500T33 PO; +NAPR220C22 PO; -WALKER WHEELS/F1 MIS
[2018-03-30] MEDS ORDERED: INSULIN HUMAN REGULAR 1,000 UNITS/10 ML VIAL SQ PRN (07:00)
[2018-03-30] MEDS ORDERED: CHLORHEXIDINE GLUCONATE 2 % 1 PACK (2 CLOTHS) TOPICAL PRN (07:00)
[2018-03-30] MEDS ORDERED: LACTATED RINGER'S 1000 ML IV PRN (07:00)
[2018-03-30] MEDS ORDERED: SODIUM CHLORID 0.9% 500 ML IV PRN (07:00)
[2018-03-30] MEDS ORDERED: POVIDONE IODINE 5% (ANTISEPSIS KIT) 4 APPLICATIONS EACH NARE PRN (07:00)
[2018-03-30] MEDS ORDERED: METOPROLOL TARTRATE 25 MG TAB PO PRN (07:00)
[2018-03-30] MEDS ORDERED: CLINDAMYCIN 600 MG/NS PREMIX 50 ML IV SCH (07:15)
[2018-03-30] MEDS ORDERED: LACTATED RINGER'S 1000 ML INJ 1,000 ML IV SCH (07:15)
[2018-03-30] MEDS ORDERED: CLINDAMYCIN INJ 600 MG in SODIUM CHLORIDE 0.9% INJ 100 ML IV SCH (07:30)
[2018-03-30] MEDS ORDERED: PROPOFOL 500 MG/50 ML INJ 200 ML ONE (07:54)
[2018-03-30] MEDS ORDERED: ACETAMINOPHEN 1000 MG/100 ML 100 ML IV ONE (07:54)
[2018-03-30] MEDS ORDERED: ARTIFICIAL TEARS OPTH OINT 3.5 APPLIC/3.5 GM TUBO ONE (07:54)
[2018-03-30] MEDS ORDERED: GENTAMICIN SULFATE 80 MG/2 ML VIAL ONE (08:48)
[2018-03-30] MEDS ORDERED: THROMBIN (TOPICAL) 5,000 UNIT VIAL ONE (08:48)
[2018-03-30] MEDS ORDERED: LIDOCAINE 1%/EPINEPHrine 1:100,000 SOLN 20 ML VIAL ONE (08:48)
[2018-03-30] MEDS ORDERED: GELFOAM SIZE 100 ONE (08:48)
[2018-03-30] MEDS ORDERED: ceFAZolin INJ 1,000 MG VIAL IV ONE ×2 (09:25→12:00)
[2018-03-30 10:39] LABS: AUTOMATED NEUTROPHIL # 2.5 TH/MM3 (1.8-7.7); BASOPHIL % 0.7 % (0.0-2.0); EOSINOPHIL # 0.2 TH/MM3 (0-0.4); HEMATOCRIT 37.3 % (35.0-46.0); HEMOGLOBIN 12.8 GM/DL (11.6-15.3); LYMPH % 47.9 % (9.0-44.0); LYMPHOCYTE # 2.8 TH/MM3 (1.0-4.8); MEAN CELL VOLUME 89.5 FL (80.0-100.0); MEAN CORPUSCULAR HEMOGLOBIN 30.7 PG (27.0-34.0); MEAN CORPUSCULAR HGB CONC 34.3 % (32.0-36.0); MEAN PLATELET VOLUME 8.2 FL (7.0-11.0); MONO % 6.1 % (0.0-8.0); MONOCYTE # 0.4 TH/MM3 (0-0.9); NEUT % 42.3 % (16.0-70.0); PLATELET COUNT 148 TH/MM3 (150-450); RED BLOOD COUNT 4.17 MIL/MM3 (4.00-5.30); RED CELL DISTRIBUTION WIDTH 12.5 % (11.6-17.2); WHITE BLOOD COUNT 5.8 TH/MM3 (4.0-11.0)
[2018-03-30] MEDS ORDERED: MIDAZOLAM HCL 2 MG/2 ML VIAL ONE (11:58)
[2018-03-30] MEDS ORDERED: LACTATED RINGER'S 1000 ML INJ 1,000 ML IV ONE (12:00)
[2018-03-30] MEDS ORDERED: ROCURONIUM INJ 50 MG/5 ML SYRINGE IV PUSH ONE (12:00)
[2018-03-30] MEDS ORDERED: PHENYLEPH/NS 1000 MCG/10 ML SYR IV ONE (12:00)
[2018-03-30] MEDS ORDERED: LIDOCAINE HCL 1% PF 5 ML SYRINGE OTHER ONE (12:00)
[2018-03-30] MEDS ORDERED: ONDANSETRON HCL 4 MG/2 ML VIAL IV PUSH ONE (12:00)
[2018-03-30] MEDS ORDERED: SODIUM CHLORID 0.9% 500 ML INJ 500 ML IV ONE (12:00)
[2018-03-30] MEDS ORDERED: PROPOFOL 200 MG/20 ML AMP IV ONE (12:00)
[2018-03-30] MEDS ORDERED: ePHEDrine/NS 25 MG/5 ML SYRINGE IV ONE (12:00)
[2018-03-30] MEDS ORDERED: DEXAMETHASONE SOD PHOS 4 MG/ML VIAL IV ONE (12:00)
--- NOTE | 2018-03-30 12:42 | RADRPT ---
EXAM DATE/TIME: 03/30/2018 09:55 [facility] COMPARISON: No previous studies available for comparison. INDICATIONS : Neck pain, C3-C4 laminoplasty. MEDICAL HISTORY : None. SURGICAL HISTORY : None. ENCOUNTER: Initial ACUITY: 1 day PAIN SCORE: Non-responsive. LOCATION: Bilateral cspine FINDINGS: A single lateral view of the cervical spine was performed. Surgical hardware is seen at the posterio r aspects of the C3 and C4 vertebral bodies. CONCLUSION: Surgical hardware over the posterior elements at the C3 and C4 levels. Fernando Appiah MD on March 30, 2018 at 12:39 Board Certified Radiologist. This report was verified electronically.
[2018-03-30] MEDS ORDERED: DO NOT ADM ANY ANTICOAGULANT DRUGS PRN (13:45)
[2018-03-30 16:00] VITALS: BP 153/70; PULSE 64; RESP 17; TEMP 97.2; O2SAT 100
[2018-03-30] MEDS ORDERED: 1/2 NS + KCL 20 MEQ INJ 1,000 ML IV SCH (16:00)
[2018-03-30] MEDS ORDERED: GLUCAGON 1 MG/ML VIAL OTHER PRN (16:30)
[2018-03-30] MEDS ORDERED: DEXTROSE 50% IN WATER 50 ML VIAL(D50) IV PUSH PRN (16:30)
[2018-03-30] MEDS: INSULIN NovoLIN REGULAR SUPPLEMENTAL SCALE SQ SCH ×2 (17:00→21:00)
[2018-03-30] MEDS: traMADol HCL 50 MG TAB PO PRN (17:43)
[2018-03-30 19:20] VITALS: BP 131/68; PULSE 69; RESP 18; TEMP 98.1; O2SAT 98
--- NOTE | 2018-03-30 20:38 | PD.OP ---
Operative Report Date of Surgery: March 30, 2018 Preoperative Diagnosis: (1) Cervical spinal stenosis (2) Cervical disc disease with myelopathy 1. Cervical spondylosis and degenerative disc disease 2. Cervical stenosis 3. Cervical myelopathy Postoperative Diagnosis: (1) Cervical spinal stenosis (2) Cervical disc disease with myelopathy 1. Cervical spondylosis and degenerative disc disease 2. Cervical stenosis 3. Cervical myelopathy Procedure: 1. C3-C4 laminoplasty, allograft bone, DBM, titanium plates and screws 2. Inferior C2 semi-laminectomy Anesthesia: General Surgeon: Segun Bang Airplane Gas Tank Liner Assembler(s): Haim Franklin Operation and Findings: Findings: Moderate C2-3, C3-4, C4-5 spondylosis Procedure in detail: The patient was brought into the operating room and general endotracheal anesthesia induced without difficulty. Lines were established by anesthesia Knee high sequential compression devices were placed Appropriate timeout procedure was performed with all personnel present and in agreement The Nguyen 3 point fixation device was placed. The patient was in a cervical collar for positioning Leads for intraoperative neuro monitoring were placed in a baseline study obtained The patient was turned into prone position on the 3080 table on the Zane frame with the undersigned maintaining control of the head and neck. The head and neck were secured to the operating room table with the Nguyen adapter with the neck slightly flexed with 3-4 fingerbreadths between the chin and chest. The neck position was checked with intraoperative C-arm and felt to be satisfactory. The cervical collar was removed. All extremities were appropriately padded. The back of the head and neck were shaved with clippers and sterilely prepped and draped. 1% Xylocaine with epinephrine was used for local infiltration over the incision site was made in the midline posterior neck and carried sharply down to the spinous processes of . The microscope was used as needed during the decompression and graft and plate placement portion of the procedure.. On the right side, the muscle attachments were mostly left in place to the spinous process in the midline supraspinous ligament was left intact, and the Dewey elevator was used to expose the junction of the lamina and facet at the C2 through C4 levels. The major myofascial attachments were left intact at the C2 spinous process bilateral. On the right side, the TPS drill with the M8 vasu was used to incise a trough in the dorsal cortical bone at the C3 and C4 levels. On the left side the posterior muscle attachments and fascia were incised with the Bovie and elevated away from the lamina and facet and spinous processes at the C3 and C4 levels On the left side, the TPS drill with the M8 vasu was used to drill a thin trough through both the dorsal and ventral cortical bone at the junction of the lamina and facet. A thin remaining shell of bone at the ventral lamina was removed with the 1 and 2 mm Kerrison rongeur. The lamina pullman car clerk was then used to elevate the left lamina away from the facet , creating a partial fracture through the lamina on the right side. Next a piece of properly prepared iliac tricortical allograft was cut to the appropriate dimensions as measured by the laminoplasty trials at the C3 and C4 levels. Prior to placement of the laminoplasty graft and plate, the inferior ventral C2 lamina was removed with the TPS drill and the Kerrison rongeur to further decompress the dura at the C2 level The prepared iliac autografts were then placed between the elevated laminar edge and decorticated facet at the left C3 and C4 levels, with the Synthes titanium laminoplasty plates pre- attached to the graft with 6 mm screws. The 4 through 6 mm screws were then used as needed to secure the laminoplasty plates to the edge of the lamina and through the facet and lateral mass at the left C3 and C4 levels. The entire construct was checked with intraoperative C-arm and also visualized under the microscope. The thin ligament dissector and blunt hook were used to carefully probe beneath the elevated lamina to ensure adequate decompression of the thecal sac. Care was taken to make sure that the edge of the lamina on the right side was not depressed into the spinal canal. The region was well irrigated with antibiotic irrigation. Bleeding was carefully controlled with bipolar forceps A 10 Tu[place] fluted drain was left at the operative site and brought out through an incision in the upper thoracic region and secured to the skin with nylon suture The closure was performed with 0 Vicryl interrupted for the deep and superficial fascia with 3-0 Vicryl interrupted subcutaneous closure and 4-0 Vicryl subcutaneous closure. A dressing of sterile Mastisol and Steri-Strips and a Primapore dressing was placed. The patient was placed back in a cervical collar and released from the Nguyen adapter and turned back into supine position on the recovery room bed. The Nguyen 3 point fixation device was then removed. The patient was taken to recovery room in stable condition All counts were correct at the end of the case. Estimated blood loss was 100 cc No specimen was sent to pathology Neural monitoring remained stable during the procedure Segun Bang MD March 30, 2018 20:38
[2018-03-30] MEDS ORDERED: BENZOCAINE 6 MG/MENTHOL 10 MG LOZENGE BUCCAL PRN (23:00)
[2018-03-30 23:34] VITALS: BP 126/61; PULSE 68; RESP 18; TEMP 97.5; O2SAT 97
[2018-03-31 04:09] VITALS: BP 145/65; PULSE 67; RESP 17; TEMP 97.5; O2SAT 97
[2018-03-31 06:50] LABS: BICARBONATE 24.5 MEQ/L (21.0-32.0); CALCIUM 8.7 MG/DL (8.5-10.1); CREATININE 0.81 MG/DL (0.50-1.00)
[2018-03-31] MEDS: INSULIN NovoLIN REGULAR SUPPLEMENTAL SCALE SQ SCH ×3 (07:31→16:51)
[2018-03-31 08:00] VITALS: BP 170/73; PULSE 98; RESP 18; TEMP 97.6; O2SAT 96
[2018-03-31 08:23] LABS: AUTOMATED NEUTROPHIL # 8.2 TH/MM3 (1.8-7.7); BASOPHIL % 0.2 % (0.0-2.0); HEMATOCRIT 39.5 % (35.0-46.0); HEMOGLOBIN 13.8 GM/DL (11.6-15.3); LYMPHOCYTE # 1.2 TH/MM3 (1.0-4.8); MEAN CELL VOLUME 90.2 FL (80.0-100.0); MEAN CORPUSCULAR HEMOGLOBIN 31.5 PG (27.0-34.0); MEAN CORPUSCULAR HGB CONC 34.9 % (32.0-36.0); MEAN PLATELET VOLUME 8.2 FL (7.0-11.0); MONO % 2.6 % (0.0-8.0); MONOCYTE # 0.3 TH/MM3 (0-0.9); NEUT % 85.2 % (16.0-70.0); PLATELET COUNT 154 TH/MM3 (150-450); RED BLOOD COUNT 4.37 MIL/MM3 (4.00-5.30); RED CELL DISTRIBUTION WIDTH 12.8 % (11.6-17.2); WHITE BLOOD COUNT 9.6 TH/MM3 (4.0-11.0)
[2018-03-31] MEDS ORDERED: HYDROCHLOROTHIAZIDE 25 MG TAB PO SCH (09:00)
[2018-03-31] MEDS ORDERED: LOSARTAN 50 MG TAB PO SCH (09:00)
[2018-03-31] MEDS: traMADol HCL 50 MG TAB PO PRN ×2 (09:18→15:29)
--- NOTE | 2018-03-31 11:47 | HHI.DS ---
Discharge Summary Admission Date March 30, 2018 at 14:21 Discharge Date: March 31, 2018 Admitting Diagnosis (1) Cervical disc disease with myelopathy Diagnosis: Principal ICD Code: M50.00 - Cervical disc disorder with myelopathy, unspecified cervical region (2) Cervical spinal stenosis Diagnosis: Secondary ICD Code: M48.02 - Spinal stenosis, cervical region Procedures : 1. C3-C4 laminoplasty, allograft bone, DBM, titanium plates and screws 2. Inferior C2 semi-laminectomy CBC/BMP: 03/31/18 0800 03/31/18 0458 Significant Findings Laboratory Tests Test 03/30/18 07:10 03/30/18 10:00 03/31/18 04:58 03/31/18 08:00 Platelet Count 148 TH/MM3 (150-450) Lymphocytes (%) (Auto) 47.9 % (9.0-44.0) Random Glucose 155 MG/DL (74-106) Estimat Glomerular Filtration Rate 69 ML/MIN (>89) Neutrophils (%) (Auto) 85.2 % (16.0-70.0) Neutrophils # (Auto) 8.2 TH/MM3 (1.8-7.7) PE at Discharge GENERAL: The patient is awake and alert sitting in the chair watching TV. Her affect is normal and she readily interacts. She is not in any distress. HEENT: Normocephalic, atraumatic. NECK: She is wearing the Craig J cervical collar. She has mild TTP to the midline cervical spine at the surgical incision and the dressing is dry & intact w/the PRINCE drain to bulb suction w/minimal serosanguinous drainage noted. Since surgery the drain has put out 70 mL as of shift change this morning. RESPIRATORY: CTAB w/o W/R/R, equal excursion, non-laboured, on RA. CARDIOVASCULAR: S1S2 w/RRR w/o M/G/R. GASTROINTESTINAL: Abdomen soft, nontender, positive bowel sounds. MUSCULOSKELETAL: HOFFMAN spontaneously & purposefully w/o any difficulty. The left popliteal fossa is minimally TTP w/o change. NEUROLOGICAL: AAOx3. Speech clear & appropriate. Follows all commands w/o difficulty. Sensation to the extremities is decreased to light touch but improved. Motor strength: LUE: Deltoid 4+/5, biceps 4+/5, triceps 4+/5, wrist flexors & extensors 5/5 and hand intrinsics & extrinsics 3/5. RUE: Deltoid 4+/5, biceps 4+ to 5/5, triceps 4+ to 5/5, wrist flexors & extensors 5/5 and hand intrinsics & extrinsics 3/5. LLE: Iliopsoas 4+/5, quadriceps 4+ to 5/5, hamstring 4+ to 5/5, tibialis anterior 5/5, gastrocnemius 5/5 and extensor hallucis longus 4+/5. RLE: Iliopsoas 4+/5, quadriceps 4+ to 5/5, hamstring 4+ to 5/5, tibialis anterior 5/5, gastrocnemius 5/5 and extensor hallucis longus 4 to 4+/5. Hospital Course 03/30: The patient presented to [facility] to undergo a C3-C4 laminoplasty with allograft bone, DBM, and titanium plates and screws, as well as an inferior C2 semi-laminectomy. Post-operatively she was admitted to a regular med /surg floor for further care and monitoring. 03/31: This morning the patient is sitting up in the chair watching TV when seen. She states that she feels so much better after her surgery. She has been up ambulating and has tolerated a diet without any difficulty. Physical Therapy evaluated the patient and felt that she was able to be safely discharged home without any skilled needs. She does have some mild pain to the back of the neck. She continues to have some decreased sensation, especially to the fingers of both hands. But she is able to close the fingers now which she was not able to do before surgery. She is also able to lift the right upper extremity higher than prior to surgery. She has some pain to the left popliteal fossa that is chronic and has not changed. She also says that she doesn't have pain to the upper extremities, it just feels like she has bricks on them. Pt Condition on Discharge: Good Discharge Disposition: Discharge Home Discharge Instructions DIET: Follow Instructions for: As Tolerated, No Restrictions ACTIVITIES You can perform: Weight Bearing As Dennis Activities to Avoid: Lifting/Bending, Strenuous Activity, Bathing, Shower, Driving ADDITIONAL Activity Instructio: Wear the cervical collar at all times. It may briefly be taken off for personal hygiene. No lifting, bending, pushing, pulling or other strenuous activity. The dressing on over the surgical incision may be removed on . After taking the outer dressing off leave the steri-strips on and let them fall off on their own. No showering until the surgical incision is totally healed. Use the flesh-coloured cervical collar when showering. Additional Information Wear the cervical collar at all times. It may briefly be taken off for personal hygiene. No lifting, bending, pushing, pulling or other strenuous activity. The dressing on over the surgical incision may be removed on . After taking the outer dressing off leave the steri-strips on and let them fall off on their own. No showering until the surgical incision is totally healed. Use the flesh- coloured cervical collar when showering. Take the pain medication as prescribed. Avoid taking any medication that contains NSAIDs (ibuprofen, naproxen, Motrin, Advil, Naprosyn) for at least three months. Follow up on Tuesday at 1:00 PM for a wound check. If you are unable to keep your appointment call the office at [phone] to reschedule your follow up appointment. Thien Lazar March 31, 2018 11:47
[2018-03-31] MEDS ORDERED: TRAM50 PO (13:04)
--- NOTE | 2018-03-31 13:31 | HHI.DCPOC ---
Discharge Care Plan Diagnosis: (1) Cervical disc disease with myelopathy (2) Cervical spinal stenosis Your Health Problems Are: Incision/Drains Exercise Tolerance Goals to Promote Your Health * To prevent worsening of your condition and complications * To maintain your health at the optimal level Wear the cervical collar at all times. It may briefly be taken off for personal hygiene. No lifting, bending, pushing, pulling or other strenuous activity. The dressing on over the surgical incision may be removed on . After taking the outer dressing off leave the steri-strips on and let them fall off on their own. No showering until the surgical incision is totally healed. Use the flesh- coloured cervical collar when showering. Take the pain medication as prescribed. Avoid taking any medication that contains aspirin or NSAIDs (ibuprofen, naproxen , Motrin, Advil, Naprosyn) for at least three months. Follow up on Tuesday at 1:00 PM for a wound check. If you are unable to keep your appointment call the office at [phone] to reschedule your follow up appointment. Directions to Meet Your Goals Take your medications as prescribed Follow your dietary instruction Follow activity as directed Wear the cervical collar at all times. It may briefly be taken off for personal hygiene. No lifting, bending, pushing, pulling or other strenuous activity. The dressing on over the surgical incision may be removed on . After taking the outer dressing off leave the steri-strips on and let them fall off on their own. No showering until the surgical incision is totally healed. Use the flesh- coloured cervical collar when showering. Take the pain medication as prescribed. Avoid taking any medication that contains aspirin or NSAIDs (ibuprofen, naproxen , Motrin, Advil, Naprosyn) for at least three months. Follow up on Tuesday at 1:00 PM for a wound check. If you are unable to keep your appointment call the office at [phone] to reschedule your follow up appointment. Keep your appointments as scheduled Take your immunizations and boosters as scheduled If your symptoms worsen call your PCP, if no PCP go to Urgent Care Center or Emergency Room Smoking is Dangerous to Your Health. Avoid second hand smoke Call the 24-hour hour crisis hotline for domestic abuse at Thien Lazar March 31, 2018 13:31
== END 2018-03-31 18:54 | disposition home or self-care (01) ==
LOC: HOR 06:19 → EDSTATUS 08:30 → N06B 14:21
PROVIDERS: ADMIT Neurological Surgery; ATTEND Neurological Surgery
DX: M48.02 Spinal stenosis, cervical region (principal); M50.00 Cervical disc disorder with myelopathy, unspecified cervical region; M47.12 Other spondylosis with myelopathy, cervical region; E11.9 Type 2 diabetes mellitus without complications
CPT/HCPCS: 00600; 63020; 63051; 72020; 76000; 80048; 82948; 85025; 87641; 94150; 97162; C1713; G0378; G8987; G8988; J0131; J0690; J1100; J1580; J2250; J2370; J2405; J3010; J7040; J7120; L0150; L0172